=== PATIENT | female | born 1995 | race Caucasian/White ===

== ENCOUNTER 2020-12-02 12:59 | Emergency (ER) | payer BC ==
[2020-12-02 13:43] LABS: Urine Blood Trace-intact (Negative); Urine Glucose Negative (Negative); Urine Protein Negative (Negative)
[2020-12-02 13:56] LABS: Absolute Lymphocytes (CBC) 1.9 K/uL (0.7-4.9); Basophils % 0.3 % (0-1.3); Hematocrit 36.9 % (36.0-45.0); Lymphocytes % 16.8 % (15.3-44.8); MPV 8.3 fL (7.6-11.3)
[2020-12-02 14:40] LABS: BUN Blood Urea Nitrogen 9 mg/dL (7-18); Bicarbonate 27 mmol/L (21-32); Glucose Level 91 mg/dL (74-106); HCG, Quantitative 60326 mIU/mL (1-3); Potassium 4.1 mmol/L (3.5-5.1); Sodium Level 138 mmol/L (136-145)
--- NOTE | 2020-12-02 14:56 | RAD REPORT ---
EXAM DESCRIPTION: US - Transvaginal OB - 12/02/2020 2:44 pm CLINICAL HISTORY: VAGINAL BLEEDING COMPARISON: No comparisons FINDINGS: Uterus is retroflexed. A normal shaped gestational sac is present in the fundal portion of the endometrial cavity. A 15 millimeter x 3 millimeter crescent-shaped subchorionic hemorrhage is pr esent along the posterior wall not regarded as significant at this small size. Gestational sac and yolk sac are identifiable. Measurements yield a 7 week 0 day age. heart rat e is 123 BPM. Both ovaries are identified and show normal blood flow within the stroma. No suspicious adnexal findi ng. No blood or fluid in the cul de sac. Cervical canal appears long and closed. IMPRESSION: Single 7 week 0 day IUP with heart rate of 123 BPM. A small subchorionic hemorrhage is present not regarded as significant.
--- NOTE | 2020-12-02 15:14 | ER ---
Nurse's Notes [facility] Name: Bubba Marcelino Age: 25 yrs Sex: Female : 1995 Arrival Date: 12/02/2020 Time: 13:01 Bed 10 Private MD: Diagnosis: Threatened Presentation: 12/02 13:07 Chief complaint: Patient states: 7 weeks preg, , states she began cramping tc5 yesterday and spotting today. Coronavirus screen: Vaccine status: Patient reports being unvaccinated. Client denies travel out of the [place] in the last 14 days. At this time, the client does not indicate any symptoms associated with coronavirus-19. Ebola Screen: No symptoms or risks identified at this time. Risk Assessment: Do you want to hurt yourself or someone else? Patient reports no desire to harm self or others. Onset of symptoms was December 01, 2020 at 12:00. 13:07 Method Of Arrival: Ambulatory tc5 13:07 Acuity: AMI 3 tc5 14:26 Initial Sepsis Screen: Does the patient meet any 2 criteria? No. Patient's initial oh sepsis screen is negative. Does the patient have a suspected source of infection? No. Patient's initial sepsis screen is negative. Triage Assessment: 14:26 General: Appears comfortable, Behavior is calm, cooperative, appropriate for age. 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 - Social history:: Smoking status: Patient denies any tobacco usage or history of. Patient uses. - Family history:: not pertinent. Screenin:24 Abuse screen: Denies threats or abuse. Nutritional screening: No deficits noted. oh Tuberculosis screening: No symptoms or risk factors identified. Fall Risk None identified. Assessment: 14:24 Obstetrical Assessment: Patient reports abdominal cramping, bleeding, states she is 7 oh weeks . Pain: Complains of pain in abdomen. 15:15 Reassessment: Patient appears in no apparent distress at this time. Patient and/or aj2 family updated on plan of care and expected duration. Pain level reassessed. Patient is alert, oriented x 3, equal unlabored respirations, skin warm/dry/pink. Vital Signs: 13:07 BP 114 / 79; Pulse 96; Resp 16; Temp 97.1; Pulse Ox 100% ; Weight 74.84 kg; Height 5 tc5 ft. 3 in. (160.02 cm); Pain 5/10; 15:15 BP 106 / 70; Pulse 90; Resp 18; Temp 97.1; Pulse Ox 100% on R/A; aj2 13:07 Body Mass Index 29.23 (74.84 kg, 160.02 cm) tc5 ED Course: 13:01 Patient arrived in ED. mr 13:07 Lisa Witt [facility]-C [facility] kb 13:07 Martir Valdez MD is Attending Physician. kb 13:09 Triage completed. tc5 13:31 Kandi Perez, RN is Primary Nurse. oh 14:25 Bed in low position. Call light in reach. oh 14:25 Inserted saline lock: 20 gauge in right antecubital area, using aseptic technique. oh Blood collected. 14:26 Arm band placed on left wrist. oh 14:36 Urine --Ancillary (enter results) Sent. oh 14:44 US Transvaginal Ob In Process Unspecified. EDMS 15:15 No apparent distress. Resting quietly. aj2 15:15 No provider procedures requiring assistance completed. IV discontinued. aj2 Administered Medications: No medications were administered Point of Care Testing: Urine : 14:25 hCG Reading: Positive; oh Outcome: 15:14 Discharge ordered by MD. kb 15:15 Discharged to home ambulatory. aj2 15:15 Condition: stable 15:15 Discharge instructions given to patient, Instructed on discharge instructions, follow up and referral plans. Demonstrated understanding of instructions, follow-up care. 15:26 Patient left the ED. aj2 Signatures: Dispatcher [employer] EDMS Lisa Witt FNP-C FNP-Aaron Naomy Kaplan Angelea aj2 Kandi Perez, RN RN in Parris Jarquin, RN RN tc5
--- NOTE | 2020-12-02 15:15 | EDPHYS ---
Physician Documentation [facility] Name: Bubba Marcelino Age: 25 yrs Sex: Female : 1995 Arrival Date: 12/02/2020 Time: 13:01 Bed 10 Private MD: ED Physician Martir Valdez HPI: 12/02 16:13 This 25 yrs old Female presents to ER via Ambulatory with complaints of kb Vaginal Bleeding, + Preg <12wks. 16:13 The patient presents to the emergency department with vaginal bleeding, described as kb spotting. The estimated gestational age is 7 weeks. course: care: at a clinic, Leakage of Fluid: none appreciated, Ultrasound: the patient has not had an ultrasound, Risk/complications: no obvious risks or complications are appreciated. Previous pregnancies: in previous pregnancies patient has had. Associated signs and symptoms: Pertinent positives: abdominal pain, vaginal bleeding. The patient has not experienced similar symptoms in the past. The patient has not recently seen a physician. Pt reports lower abd cramping for a few days. Today she noticed blood on the toilet paper when she wiped. 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 - Social history:: Smoking status: Patient denies any tobacco usage or history of. Patient uses. - Family history:: not pertinent. ROS: 16:12 Constitutional: Negative for fever, chills, and weight loss. kb 16:12 Abdomen/GI: Positive for abdominal cramps. 16:12 : Positive for vaginal bleeding. 16:12 All other systems are negative. Exam: 16:12 Constitutional: This is a well developed, well nourished patient who is awake, alert, kb and in no acute distress. Head/Face: Normocephalic, atraumatic. ENT: Moist Mucous membranes Respiratory: Respirations even and unlabored. No increased work of breathing, no retractions or nasal flaring. Abdomen/GI: Soft, non-tender. No distention Skin: Warm, dry with normal turgor. Normal color. MS/ Extremity: Pulses equal, no cyanosis. Neurovascular intact. Full, normal range of motion. Neuro: Awake and alert, GCS 15, oriented to person, place, time, and situation. Moves all extremities. Normal gait. Psych: Awake, alert, with orientation to person, place and time. Behavior, mood, and affect are within normal limits. Vital Signs: 13:07 BP 114 / 79; Pulse 96; Resp 16; Temp 97.1; Pulse Ox 100% ; Weight 74.84 kg; Height 5 tc5 ft. 3 in. (160.02 cm); Pain 5/10; 15:15 BP 106 / 70; Pulse 90; Resp 18; Temp 97.1; Pulse Ox 100% on R/A; aj2 13:07 Body Mass Index 29.23 (74.84 kg, 160.02 cm) tc5 MDM: 13:26 Patient medically screened. kb 15:14 Data reviewed: vital signs, nurses notes. Data interpreted: Pulse oximetry: on room air kb is 100 %. Interpretation: normal. Counseling: I had a detailed discussion with the patient and/or guardian regarding: the historical points, exam findings, and any diagnostic results supporting the discharge/admit diagnosis, lab results, radiology results, the need for outpatient follow up, an OB/Gyne specialist, to return to the emergency department if symptoms worsen or persist or if there are any questions or concerns that arise at home. 12/02 13:18 Order name: Abo/rh Typing; Complete Time: 14:37 kb 12/02 13:18 Order name: Basic Metabolic Panel; Complete Time: 14:48 kb 12/02 13:18 Order name: CBC with Diff; Complete Time: 14:09 kb 12/02 13:18 Order name: Quantitative Hcg; Complete Time: 14:48 kb 12/02 13:43 Order name: Urine Dipstick-Ancillary; Complete Time: 13:47 EDMS 12/02 13:46 Order name: Urine --Ancillary (enter results); Complete Time: 14:48 bd 12/02 13:18 Order name: IV Saline Lock; Complete Time: 13:46 kb 12/02 13:18 Order name: Labs collected and sent; Complete Time: 13:46 kb 12/02 13:18 Order name: NPO; Complete Time: 13:47 kb 12/02 13:18 Order name: Urine Dipstick-Ancillary (obtain specimen); Complete Time: 13:45 kb 12/02 13:18 Order name: Urine Test (obtain specimen); Complete Time: 13:45 kb 12/02 13:52 Order name: US Transvaginal Ob; Complete Time: 15:03 kb Administered Medications: No medications were administered Point of Care Testing: Urine : 14:25 hCG Reading: Positive; oh Disposition Summary: 12/02/20 15:14 Discharge Ordered Location: Home kb Condition: Stable kb Diagnosis - Threatened kb Followup: kb - With: Emergency Department - When: As needed - Reason: Worsening of condition Followup: kb - With: Private Physician - When: 2 - 3 days - Reason: Recheck today's complaints, Continuance of care, Re-evaluation by your physician Discharge Instructions: - Discharge Summary Sheet kb - Threatened Miscarriage, [id number] kb - Vaginal Bleeding During , First Trimester, [id number] kb Forms: - Medication Reconciliation Form kb - Thank You Letter kb - Antibiotic Education kb - Prescription Opioid Use kb Addendum: 12/05/2020 08:33 Co-signature as Attending Physician, Martir Valdez MD I agree with the assessment and r n plan of care. Attestation: The patient's history, exam findings, diagnostics, and a summary of any interventions or procedures was reviewed in detail with Lisa TATE. Signatures: Dispatcher [employer] Lisa Marquis FNP-C FNP-Martir Montero MD MD rn Cassaboom, Theresa, RN RN tc5
[2020-12-02 15:30] VITALS: TEMP 97.1; O2SAT 100
[2020-12-02 15:31] VITALS: BP 106/70
== END 2020-12-02 15:26 | disposition home or self-care (01) ==
LOC: ER 12:59
DX: O20.0 Threatened abortion (principal); Z3A.01 Less than 8 weeks gestation of pregnancy
CPT/HCPCS: 36415; 76817; 80048; 81003; 81025; 84702; 85025; 86900; 86901; 99284

== ENCOUNTER 2021-02-05 09:19 | Emergency (ER) | payer BC, SELFPAY ==
--- OUTSIDE RECORDS SUMMARY | 2021-02-05 09:23 | XMS REPORT | Continuity of Care Document ---
:1995 Author Organization [facility] t Address [address] [place] [address] [address] [place] [address] Care Team Providers Name Role Phone RUDY Primary Care Physician Unavailable POLLARD, ISATU Attending Clinician Unavailable SIDDHARTHA UMANA Attending Clinician Unavailable 2, Lab Attending Clinician Unavailable Papo RIOJAS Attending Clinician Nurse, Pob Immunization Attending Clinician Unavailable Siddhartha Umana DO Attending Clinician PAPO Attending Clinician Unavailable Payers Payer Name Policy Type Policy Number Effective Date Expiration Date S ource Problems Condition Condition Condition Status Onset Resolution Last Treating Co mments Source Name Details Category Date Date Treatment Clinician Date High-risk High-risk Disease Active 2020-02 Uni vers 0-25 ity of in first in first 00:00: [place] trimester trimester 00 [facility] History of History of Disease Active 2020-02 U amarilisers depression depression 0-25 it y of 00:00: [address] History of History of Disease Active 2020-02 U nivers anxiety anxiety 0-25 ity of 00:00: [address] Branch Hx of Hx of Disease Active 2020-02 Univers macrosomia macrosomia 0-25 [place] of [place] Medica l , , Br anch currently currently Hx of Hx of Disease Active 2020-02 Univers migraines migraines 0-25 ity of 00:00: [address] Left arm Left arm Disease Active 2021-1 Overview: Un alisson numbness numbness 0-25 Formattin ity of 00:00: g of this 00 note Medical might be Branch different from the original. last episode was 4 weeks ago Nausea and Nausea and Disease Active 2020-02 U nivers vomiting vomiting 0-25 ity of during during 00:00: [place] 00 [facility] Branch Allergies, Adverse Reactions, Alerts Allergy Allergy Status Severity Reaction(s) Onset Inactive Treating Comm ents Source Name Type Date Date Clinician IODINE DRUG Active Other-Cmnt 2014-02 Univer s INGREDI 03-03 ity of 00:00: [place] 00 Medical Branch Iodine Propensi Active Other - See 2014-02 Causes Uni vers ty to comments 03-03 cueva ity of adverse 00:00: [place] reaction 00 [facility] Branch Social History Social Habit Start Date Stop Date Quantity Comments Source ASSERTION 2020-10-29 [facility] 00:00:00 [facility] Exposure to Not sure [facility] SARS-CoV-2 [facility] (event) [place] Alcohol intake 2020-12-22 2020-12-22 Ex-drinker [facility] 00:00:00 00:00:00 (finding) [facility] Sex Assigned At [birth year] Universit y of 00:00:00 00:00:00 [facility] Smoking Status Start Date Stop Date Source Never smoker [facility] Medications Ordered Filled Start Stop Current Ordering Indication Dosage Frequency Signature Comments Components Source Medication Medication Date Date Medication? Clinician (SIG) Name Name magnesium 2020-02 Yes [id number] 400mg Take 1 Univers oxide 400 0-27 tablet by ity o f mg (241.3 00:00: mouth [place] mg 00 daily. Medical magnesium) Branch tablet metoclopram 2020-02 Yes [id number] 10mg Take 1 Univers dorita HCl 10 0-27 tablet by ity of mg tablet 00:00: mouth [place] 00 every 6 Medical (six) Branch hours as needed for Nausea and Vomiting (N/V). magnesium 2020-02 Yes [id number] 400mg Take 1 Univers oxide 400 0-27 tablet by ity o f mg (241.3 00:00: mouth [place] mg 00 daily. Medical magnesium) Branch tablet metoclopram 2020-02 Yes [id number] 10mg Take 1 Univers dorita HCl 10 0-27 tablet by ity of mg tablet 00:00: mouth [place] 00 every 6 Medical (six) Branch hours as needed for Nausea and Vomiting (N/V). magnesium 2020-02 Yes [id number] 400mg Take 1 Univers oxide 400 0-27 tablet by ity o f mg (241.3 00:00: mouth [place] mg 00 daily. Medical magnesium) Branch tablet metoclopram 2020-02 Yes [id number] 10mg Take 1 Univers dorita HCl 10 0-27 tablet by ity of mg tablet 00:00: mouth [place] 00 every 6 Medical (six) Branch hours as needed for Nausea and Vomiting (N/V). doxylamine- 2020-02 Yes Take by Un alisson pyridoxine, 0-25 mouth. ity of vit B6, 10:28: [place] (DICLEGIS) 43 Medical 10-10 mg Branch per tablet [id number] 2020-02 Yes Take by Un alisson 3-dha-epa-f 0-25 mouth. ity of linda oil 10:28: [place] ( 43 Medical GUMMY) 400 Branch mcg-35 mg -25 mg-5 mg Chew doxylamine- 2020-02 Yes Take by Un alisson pyridoxine, 0-25 mouth. ity of vit B6, 10:28: [place] (DICLEGIS) 43 Medical 10-10 mg Branch per tablet [id number] 2020-02 Yes Take by Un alisson 3-dha-epa-f 0-25 mouth. ity of linda oil 10:28: [place] ( 43 Medical GUMMY) 400 Branch mcg-35 mg -25 mg-5 mg Chew doxylamine- 2020-02 Yes Take by Un alisson pyridoxine, 0-25 mouth. ity of vit B6, 10:28: [place] (DICLEGIS) 43 Medical 10-10 mg Branch per tablet [id number] 2020-02 Yes Take by Un alisson 3-dha-epa-f 0-25 mouth. ity of linda oil 10:28: [place] ( 43 Medical GUMMY) 400 Branch mcg-35 mg -25 mg-5 mg Chew Immunizations Ordered Filled Immunization Date Status Comments [facility] e Immunization Name Name SARS-COV-2 COVID-19 2021-01-19 [facility] of Bit9 VACCINE 00:00:00 [place] Medi raven Branch SARS-COV-2 COVID-19 2021-01-19 Completed Unive rsity of PFIZER VACCINE 00:00:00 [facility] Branch Influenza Virus 2020-12-23 Completed Universit y of Vaccine Quad IM, 00:00:00 [place] Me dical Preserv and ABX Branch Free 6 MO-64 YRS Influenza Virus 2020-12-23 Completed Universit y of Vaccine Quad IM, 00:00:00 [place] Me dical Preserv and ABX Branch Free 6 MO-64 YRS Influenza Virus 2020-12-23 Completed Universit y of Vaccine Quad IM, 00:00:00 [place] Me dical Preserv and ABX Branch Free 6 MO-64 YRS Vital Signs Vital Name Observation Time Observation Value Comments Source Systolic blood 2021-01-19 18:02:00 105 mm[Hg] Univer sity of pressure [facility] Diastolic blood 2021-01-19 18:02:00 73 mm[Hg] Unive rsity of pressure [facility] Heart rate 2021-01-19 18:02:00 83 /min [facility] Body temperature 2021-01-19 18:02:00 36.94 Amy [facility] Respiratory rate 2021-01-19 18:02:00 18 /min [facility] Body height 2021-01-19 18:02:00 160 cm [facility] Body weight 2021-01-19 18:02:00 73.029 kg [facility] BMI 2021-01-19 18:02:00 28.52 kg/m2 [facility] Procedures Procedure Date / Time Performed Performing Clinician Sourc e SARS-COV-2 COVID-19 2021-01-19 20:07:37 Doctor Unassigned, No Un iversity of [place] VACCINE,0.3ML,IM Name Medical Branch (PFIZER) POCT URINALYSIS W/O 2021-01-19 00:00:00 Anais Wright [facility] SPECIFIC GRAVITY [facility] Encounters Start End Encounter Admission Attending Care Care Encounter Source Date/Time Date/Time Type Type Clinicians Facility Department ID 2021-02-18 2021-02-18 Outpatient R BENITA POLLARD [facility] [id number] Univers 11:00:00 11:00:00 [id number] [facility] 2021-02-09 2021-02-09 [facility] [id number] Univers 08:50:00 08:50:[address] [facility] 2021-01-19 2021-01-19 Medical Transcription 2, Adc Lab [facility] [id number] Univers 13:12:26 13:27:26 Visit Anais Wright [id number] ity of [id number] PROF[place] [phone] [place]ical NAL [facility] 2021-01-19 2021-01-19 Imm/Inj Nurse, [facility] Pob Immunization [facility] [id number] Univers 13:06:53 13:06:59 Visit Gil Umana [id number] ity [facility] [id number] [id number] [place]ical NAL [facility] 2021-01-19 2021-01-19 Outpatient R PAPO [facility] [id number] Univers 11:30:00 12:17:35 ANAIS [facility] 2021-01-19 2021-01-19 [facility] [id number] Univers 11:20:46 12:17:35 Anais TA [id number] ity of Visit [id number] [id number] [place]ical NAL [facility] Results Test Description Test Time Test Comments Results Result Comments Source POCT URINALYSIS W/O SPECIFIC GRAVITY 2021-01-19 18:04:00 Test Item Value Reference Range Interpretation Comme nts POCT PH U (test code = 3254) n/a 5-8 POCT U LEUK EST (test code = 3263) n/a Negative - Negative POCT U NIT (test code = 3262) n/a Negative - Negative POCT U PROT (test code = 3259) neg Negative - Negative POCT U GLU (test code = 3256) neg Negative - Negative POCT U KETONE (test code = 3258) n/a Negative - Negative POCT U BLD (test code = 3257) n/a Negative - Negative [facility]
[2021-02-05] MEDS ORDERED: NA CHLORIDE 0.9% 1,000 ML ONE (10:17)
[2021-02-05] MEDS ORDERED: METOCLOPRAMIDE 10 MG/2mL INJ ONE (10:17)
[2021-02-05] MEDS ORDERED: DIPHENHYDRAMINE 12.5MG/5ML LIQ ONE (10:17)
[2021-02-05] MEDS ORDERED: DIPHENHYDRAMINE 50 MG/ML VIAL ONE (10:48)
[2021-02-05 10:50] LABS: Absolute Lymphocytes (CBC) 0.7 K/uL (0.7-4.9); Basophils % 0.1 % (0-1.3); Hematocrit 39.4 % (36.0-45.0); Lymphocytes % 6.4 % (15.3-44.8); MPV 8.3 fL (7.6-11.3); RBC Red Blood Cell Count 4.61 M/uL (3.86-4.86)
[2021-02-05 11:14] LABS: ALT/SGPT 15 U/L (12-78); AST/SGOT 10 U/L (15-37); Albumin 3.2 g/dL (3.4-5.0); Alkaline Phosphatase 52 U/L (45-117); BUN Blood Urea Nitrogen 11 mg/dL (7-18); Bicarbonate 23 mmol/L (21-32); Bilirubin Direct < 0.1 mg/dL (0-0.2); Bilirubin Total 0.3 mg/dL (0.2-1.0); Glucose Level 89 mg/dL (74-106); Lipase 69 U/L (73-393); Protein, Total 7.2 g/dL (6.4-8.2); Sodium Level 137 mmol/L (136-145)
[2021-02-05 11:47] LABS: Urine Blood Negative (Negative); Urine Glucose Negative (Negative); Urine Protein Negative (Negative); Urine Specific Gravity >=1.030 (1.005-1.030)
[2021-02-05 11:59] LABS: Blood Morphology Comment NOT SEEN (NOT SEEN); Platelet Estimate ADEQ; White Blood Cell Scan OK (OK)
--- NOTE | 2021-02-05 12:54 | ER ---
Nurse's Notes [facility] Name: Bubba Marcelino Age: 25 yrs Sex: Female : 1995 Arrival Date: 02/05/2021 Time: 09:20 Bed 9 Private MD: Diagnosis: Vomiting;Diarrhea, unspecified Presentation: 02/05 09:44 Chief complaint: Patient states: N/V/D and diffuse abdominal cramps since 1900 last jl7 night, pt reports approx. 4 months . Coronavirus screen: diarrhea, nausea, vomiting. Client presents with at least one sign or symptom that may indicate coronavirus-19. Standard/surgical mask placed on the client. Provider contacted for isolation considerations. Ebola Screen: No symptoms or risks identified at this time. Risk Assessment: Do you want to hurt yourself or someone else? Patient reports no desire to harm self or others. Onset of symptoms was February 04, 2021 at 19:00. Care prior to arrival: None. 09:44 Method Of Arrival: Ambulatory jl7 09:44 Acuity: AMI 3 jl7 12:56 Initial Sepsis Screen: Does the patient meet any 2 criteria? No. Patient's initial ll3 sepsis screen is negative. Does the patient have a suspected source of infection? No. Patient's initial sepsis screen is negative. Triage Assessment: 09:46 General: Appears in no apparent distress. uncomfortable, Behavior is calm, cooperative, jl7 appropriate for age. Pain: Complains of pain in abdomen diffusely Pain currently is 7 out of 10 on a pain scale. Quality of pain is described as crampy. GI: Reports diarrhea, nausea, vomiting. 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 - Social history:: Smoking status: Patient denies any tobacco usage or history of. Screenin:45 Abuse screen: Denies threats or abuse. Nutritional screening: No deficits noted. ll3 Tuberculosis screening: No symptoms or risk factors identified. Fall Risk IV access (20 points). Total Anders Fall Scale indicates No Risk (0-24 pts). Assessment: 10:45 General: General: See triage. ll3 11:42 Reassessment: Patient appears in no apparent distress at this time. No changes from ll3 previously documented assessment. Patient and/or family updated on plan of care and expected duration. Pain level reassessed. 12:45 Reassessment: Patient appears in no apparent distress at this time. No changes from ll3 previously documented assessment. Patient and/or family updated on plan of care and expected duration. Pain level reassessed. Patient is alert, oriented x 3, equal unlabored respirations, skin warm/dry/pink. 12:45 GI: Abdomen is flat, non-distended. ll3 13:08 Reassessment: Patient appears in no apparent distress at this time. No changes from ll3 previously documented assessment. Patient and/or family updated on plan of care and expected duration. Pain level reassessed. Patient is alert, oriented x 3, equal unlabored respirations, skin warm/dry/pink. Vital Signs: 09:44 Weight 73.03 kg; Height 5 ft. 3 in. (160.02 cm); Pain 7/10; jl7 09:54 BP 95 / 73; Pulse 108; Resp 16; Temp 98.1(O); Pulse Ox 100% on R/A; Weight 73.03 kg ll3 (R); Height 5 ft. 3 in. (160.02 cm) (R); Pain 5/10; 11:30 BP 96 / 66; Pulse 96; Resp 16; Pulse Ox 100% on R/A; ll3 13:08 BP 102 / 64; Pulse 99; Resp 15; Pulse Ox 100% on R/A; ll3 09:54 Body Mass Index 28.52 (73.03 kg, 160.02 cm) ll3 ED Course: 09:20 Patient arrived in ED. kc5 09:32 Álvaro Rosenberg PA is PHCP. jmm 09:33 Nirav Sanford MD is Attending Physician. jmm 09:40 Perry Patino, NITA is Primary Nurse. ll3 09:46 Triage completed. jl7 09:46 Arm band placed on right wrist. jl7 10:45 Initial lab(s) drawn, by ED staff, sent to lab. Inserted saline lock: 22 gauge in left kj1 antecubital area, using aseptic technique. Blood collected. 12:56 Patient has correct armband on for positive identification. Call light in reach. Adult ll3 w/ patient. 12:56 No provider procedures requiring assistance completed. ll3 13:08 IV discontinued, intact, bleeding controlled, No redness/swelling at site. Pressure ll3 dressing applied. Administered Medications: 10:52 Drug: NS 0.9% 1000 ml Route: IV; Rate: 1 bolus; Site: left antecubital; vg1 13:09 Follow up: Response: No adverse reaction; IV Status: Completed infusion; IV Intake: ll3 1000ml 10:52 Drug: Reglan (metoCLOPramide) 20 mg Route: IVP; Site: left antecubital; vg1 13:09 Follow up: Response: No adverse reaction; Marked relief of symptoms ll3 10:55 Drug: diphenhydrAMINE 12.5 mg Route: IVP; Site: left antecubital; vg1 11:48 Follow up: Response: No adverse reaction ll3 Intake: 13:09 IV: 1000ml; Total: 1000ml. ll3 Outcome: 12:54 Discharge ordered by . enedina 13:08 Discharged to home ambulatory. ll3 13:08 Condition: stable 13:08 Discharge instructions given to patient, Instructed on discharge instructions, follow up and referral plans. medication usage, Demonstrated understanding of instructions, follow-up care, medications, Prescriptions given X 1. 13:09 Patient left the ED. ll3 Signatures: Álvaro Rosenberg PA PA jmm Leal, Jahala, RN RN jl7 Sarah Witt kj1 Christine Perdomo RN RN vg1 Perry Patino RN RN ll3 Debra Umana kc5 Corrections: (The following items were deleted from the chart) 10:59 10:52 diphenhydrAMINE 12.5 mg IVP in left antecubital vg1 vg1 11:42 11:36 General: ll3 ll3
--- NOTE | 2021-02-05 12:54 | EDPHYS ---
Physician Documentation [facility] Name: Bubba Marcelino Age: 25 yrs Sex: Female : 1995 Arrival Date: 02/05/2021 Time: 09:20 Bed 9 Private MD: ED Physician Nirav Sanford HPI: 02/05 09:48 This 25 yrs old Female presents to ER via Ambulatory with complaints of jmm Nausea/Vomiting/Diarrhea, Abdominal Cramping. 09:48 The patient presents to the emergency department with nausea, vomiting, diarrhea, jmm abdominal pain. Onset: The symptoms/episode began/occurred gradually, 1 day(s) ago. Possible causes: . The symptoms are aggravated by nothing. The symptoms are alleviated by nothing. Associated signs and symptoms: Pertinent positives: abdominal pain. This is a 25 year old female that presents to the ED with complaints of vomiting beginning last night. With diarrhea beginning today and diffuse abdominal pain. Patient denies recent travel, denies recent abx use. . 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 - Social history:: Smoking status: Patient denies any tobacco usage or history of. ROS: 09:48 Constitutional: Negative for fever, chills, and weight loss, Cardiovascular: Negative jmm for chest pain, palpitations, and edema, Respiratory: Negative for shortness of breath, cough, wheezing, and pleuritic chest pain. 09:48 Abdomen/GI: Positive for abdominal pain, nausea and vomiting, diarrhea. 09:48 All other systems are negative. Exam: 09:48 Constitutional: This is a well developed, well nourished patient who is awake, alert, jmm and in no acute distress. Head/Face: atraumatic. Eyes: EOMI, no conjunctival erythema appreciated ENT: Moist Mucus Membranes Neck: Trachea midline, Supple Chest/axilla: Normal chest wall appearance and motion. Cardiovascular: Regular rate and rhythm. No edema appreciated Respiratory: Normal respirations, no respiratory distress appreciated Abdomen/GI: Non distended, soft Back: Normal ROM Skin: General appearance color normal MS/ Extremity: Moves all extremities, no obvious deformities appreciated, no edema noted to the lower extremities Neuro: Awake and alert, normal gait Psych: Behavior is normal, Mood is normal, Patient is cooperative and pleasant Vital Signs: 09:44 Weight 73.03 kg; Height 5 ft. 3 in. (160.02 cm); Pain 7/10; jl7 09:54 BP 95 / 73; Pulse 108; Resp 16; Temp 98.1(O); Pulse Ox 100% on R/A; Weight 73.03 kg ll3 (R); Height 5 ft. 3 in. (160.02 cm) (R); Pain 5/10; 11:30 BP 96 / 66; Pulse 96; Resp 16; Pulse Ox 100% on R/A; ll3 13:08 BP 102 / 64; Pulse 99; Resp 15; Pulse Ox 100% on R/A; ll3 09:54 Body Mass Index 28.52 (73.03 kg, 160.02 cm) ll3 MDM: 09:48 Patient medically screened. [facility] 12:52 Data reviewed: vital signs, nurses notes. Counseling: I had a detailed discussion with enedina the patient and/or guardian regarding: the historical points, exam findings, and any diagnostic results supporting the discharge/admit diagnosis, lab results, radiology results, the need for outpatient follow up, to return to the emergency department if symptoms worsen or persist or if there are any questions or concerns that arise at home. ED course: Patient is alert and non toxic in appearance in the ED. States she feels much better. I do not currently suspect acute appendicitis or a surgical abdomen. Advised to follow up with her MECHANICAL ENERGY ENGINEER and otherwise given strict return precautions. Patient understood and agrees with the plan of care. . 02/05 09:49 Order name: Basic Metabolic Panel; Complete Time: 11:20 [facility] 02/05 09:49 Order name: CBC with Diff; Complete Time: 12:01 [facility] 02/05 09:49 Order name: Hepatic Function; Complete Time: 11:20 [facility] 02/05 09:49 Order name: Lipase; Complete Time: 11:20 [facility] 02/05 11:47 Order name: Urine Dipstick-Ancillary; Complete Time: 11:55 [facility] 02/05 11:59 Order name: CBC Smear Scan; Complete Time: 12:01 [facility] 02/05 09:49 Order name: IV Saline Lock; Complete Time: 10:46 [facility] 02/05 09:49 Order name: Labs collected and sent; Complete Time: 10:46 [facility] 02/05 09:49 Order name: Urine Dipstick-Ancillary (obtain specimen); Complete Time: 11:48 [facility] Administered Medications: 10:52 Drug: NS 0.9% 1000 ml Route: IV; Rate: 1 bolus; Site: left antecubital; vg1 13:09 Follow up: Response: No adverse reaction; IV Status: Completed infusion; IV Intake: ll3 1000ml 10:52 Drug: Reglan (metoCLOPramide) 20 mg Route: IVP; Site: left antecubital; vg1 13:09 Follow up: Response: No adverse reaction; Marked relief of symptoms ll3 10:55 Drug: diphenhydrAMINE 12.5 mg Route: IVP; Site: left antecubital; vg1 11:48 Follow up: Response: No adverse reaction ll3 Disposition: 02/06 07:48 Co-signature as Attending Physician, Nirav Sanford MD I agree with the assessment and sp3 plan of care. Disposition Summary: 02/05/21 12:54 Discharge Ordered Location: Home [facility] Condition: Stable [facility] Diagnosis - Vomiting [facility] - Diarrhea, unspecified [facility] Followup: [facility] - With: Private Physician - When: 1 - 2 days - Reason: Recheck today's complaints, Continuance of care, Re-evaluation by your physician Discharge Instructions: - Discharge Summary Sheet [facility] - Hyperemesis Gravidarum [facility] Forms: - Medication Reconciliation Form [facility] - Thank You Letter [facility] - Antibiotic Education [facility] - Prescription Opioid Use [facility] Prescriptions: - ondansetron 4 mg Oral tablet,disintegrating - take 1 tablet by ORAL route every 4-6 hours As needed; 20 tablet; Refills: 0, [facility] Product Selection Permitted Signatures: Dispatcher [employer] [facility] Álvaro Rosenberg PA PA jm Joyce Mcfadden RN RN jl7 Christine Perdomo RN RN vg1 Nirav Sanford MD MD sp3 Perry Patino RN ll3
[2021-02-05 13:18] VITALS: TEMP 98.1; O2SAT 100
[2021-02-05 13:21] VITALS: BP 102/64
== END 2021-02-05 13:09 | disposition home or self-care (01) ==
LOC: ER 09:19
DX: O21.0 Mild hyperemesis gravidarum (principal); Z3A.00 Weeks of gestation of pregnancy not specified; K21.9 Gastro-esophageal reflux disease without esophagitis
CPT/HCPCS: 36415; 80048; 80076; 81003; 83690; 85025; 96361; 96374; 96375; 99284; J1200; J2765; J7030; Q0163

== ENCOUNTER 2023-01-24 11:52 | Emergency (ER) | payer OTHER ==
--- OUTSIDE RECORDS SUMMARY | 2023-01-24 11:57 | XMS REPORT | Continuity of Care Document ---
:1995 Author Organization [facility] t Address [address] [place] [address] [place] [id number] Care Team Providers Name Role Phone Camilo Bergeron MD Primary Care Physician [email or web address] Attending Clinician Unavailable Doctor Unassigned, Bunk Foss Attending Clinician Unavailable BENITA POLLARD Attending Clinician Unavailable Benita Pollard MD Attending Clinician Fontanilla III, BRICK EXTRUDER OPERATOR, R Attending Clinician Shanon Melton MD Attending Clinician Only, Adc Test Attending Clinician Unavailable ANAIS BARROS Attending Clinician Unavailable Anais Barros PA-C Attending Clinician Italo Pollard MD Attending Clinician HORTENSIA HERRMANN Attending Clinician Unavailable AYDIN DIAZ Attending Clinician Unavailable Aydin Lyon Attending Clinician CELENA BURNS Attending Clinician Unavailable Celena Burns MD Attending Clinician 2, Adc Lab Attending Clinician Unavailable MARI LIU Attending Clinician Unavailable MARI LIU Attending Clinician Unavailable Ultrasound, Adc Mfm Attending Clinician Unavailable Mari Liu MD Attending Clinician Ingrid Attending Clinician Unavailable GIL LIU Attending Clinician Unavailable Nurse, Adc Pob Immunization Attending Clinician Unavailable Gil Liu DO Attending Clinician Shraddha Attending Clinician Unavailable Nurse, Adc Women's Health Attending Clinician Unavailable Ruth Calderon MD Attending Clinician BENITA POLLARD Admitting Clinician Unavailable [email or web address]_S Admitting Clinician Unavailable Benita Pollard MD Admitting Clinician AYDIN DIAZ Admitting Clinician Unavailable CELENA BURNS Admitting Clinician Unavailable Celena Burns MD Admitting Clinician River_Ayesha Admitting Clinician Unavailable Shraddha Admitting Clinician Unavailable Payers Payer Name Policy Type Policy Number Effective Date Expiration Date Susana whalen FORMERLY [facility] [id number] 2019 2021 00:00:00 00:00:00 [facility] [id number] [place]/ PRE-EMPLOYMENT Problems Condition Condition Condition Status Onset Resolution Last Treating Co mments Source Name Details Category Date Date Treatment Clinician Date 39 weeks 39 weeks Disease Active Unive rs gestation gestation 5-20 ity of of of 00:00: [place] [facility] Encounter Encounter Disease Active Uni vers for for 5-20 ity of planned planned 00:00: [place] induction induction 00 [facility] of labor of labor Alpha Liveborn Liveborn Disease Active Unive rs , of infant, of 5-20 it y of qu[place] qu[place] , , 00 [place] dical born in born in [facility] by vaginal by vaginal delivery delivery 36 weeks 36 weeks Disease Active Unive rs gestation gestation 4-27 ity of of of 00:00: [place] [facility] BV BV Disease Active Univers (bacterial (bacterial 4-27 it y of vaginosis) [place]in[place] [address] [place] [address] 37 weeks 37 weeks Disease Active Unive rs gestation gestation 4-27 ity of of of 00:00: [place] 00 [facility] Obesity Obesity Disease Active 2020-02 Univers (BMI (BMI 2-28 ity of 30-39.9) 30-39.9) 00:00: [place] 00 Medical Branch Nausea Nausea Disease Active 2020-02 Univers vomiting vomiting 0-25 ity of and and 00:00: [place] diarrhea diarrhea 00 Medica l Branch High-risk High-risk Disease Active 2020-02 Uni vers 0-25 ity of in third in third 00:00: [place] trimester trimester 00 [facility] History of History of Disease Active 2020-02 U nivers depression depression 0-25 it y of 00:00: [place] 00 Medical Branch History of History of Disease Active 2020-02 U nivers anxiety anxiety 0-25 ity of 00:00: [place] 00 Medical Branch Hx of Hx of Disease Active 2020-02 Univers macrosomia macrosomia 0-25 it y of in infant in 00:[place] in prior in prior 00 Medica l , , Br anch currently currently Hx of Hx of Disease Active 2020-02 Univers migraines migraines 0-25 ity of 00:00: [place] 00 Medical Branch Left arm Left arm Disease Active 2020-02 Overview: Un alisson numbness numbness 0-25 Formattin ity of 00:00: g of this [place] 00 note Medical might be Branch different from the original. last episode was 4 weeks ago Nausea and Nausea and Disease Active 2020-02 U nivers vomiting vomiting 0-25 ity of during during 00:00: [place] 00 [facility] Allergies, Adverse Reactions, Alerts Allergy Allergy Status Severity Reaction(s) Onset Inactive Treating Comm ents Source Name Type Date Date Clinician Iodine Propensi Active Other - See 2014-02 Causes Uni vers ty to comments 03-03 cueva ity of adverse 00:00: [place] reaction 00 Medical s Branch IODINE DRUG Active Other-Cmnt 2014-02 Univer s INGREDI -04 ity of 00:00: [place] 00 Medical Branch Iodine Allergy Active [facility] Social History Social Habit Start Date Stop Date Quantity Comments Source ASSERTION 2020-10-29 University of 00:00:00 [facility] Sexual orientation Gifty tong [facility] Exposure to 2021-08-28 2021-09-07 Not sure University of SARS-CoV-2 (event) 00:00:00 14:53:00 [facility] Tobacco use and 2021-09-07 2021-09-07 Smokeless Universit y of exposure 00:00:00 00:00:00 tobacco non-user [facility] Alcohol intake 2021-04-17 2021-04-17 Ex-drinker [facility] 00:00:00 00:00:00 (finding) [facility] History of Social 2020-12-22 2020-12-22 Univers ity of function 00:00:00 00:00:00 [facility] Sex Ass[birth year] At [birth year] Universit y of 00:00:00 00:00:00 [facility] Smoking Status Start Date Stop Date Source Never smoked tobacco [facility] Medications Ordered Filled Start Stop Current Ordering Indication Dosage Frequency Signature Comments Components Source Medication Medication Date Date Medication? Clinician (SIG) Name Name [id number] 2021- No Take by Un alisson 3-dha-epa-f 7-11 -11 mouth. ity o f linda oil 15:57: 00:00 [place] ( 50 :00 Medical GUMMY) 400 Branch mcg-35 mg -25 mg-5 mg Chew [id number] Yes Take by Uni vers 3-dha-epa-f 5-21 mouth. ity of linda oil 19:11: [place] ( 17 Medical GUMMY) 400 Branch mcg-35 mg -25 mg-5 mg Chew doxylamine- 2021- No Take by Un alisson pyridoxine, 5-21 05-21 mouth. ity o f vit B6, 12:59: 00:00 [place] (DICLEGIS) 32 :00 Medical 10-10 mg Branch per tablet ibuprofen 2021- Yes [id number] 600mg Take 1 Univers 600 mg 5-21 102 tablet by ity of tablet 00:00: mouth [place] 00 every 6 Medical (six) Branch hours as needed (Pain). Take with food or milk. ibuprofen 2021-0 Yes [id number] 600mg Take 1 Univers 600 mg 5-21 102 tablet by ity of tablet 00:00: mouth [place] 00 every 6 Medical (six) Branch hours as needed (Pain). Take with food or milk. ibuprofen 2021-0 Yes [id number] 600mg Take 1 Univers 600 mg 5-21 102 tablet by ity of tablet 00:00: mouth [place] 00 every 6 Medical (six) Branch hours as needed (Pain). Take with food or milk. witch Kathrin Yes Topical, Un alisson (TUCKS) 50 5-20 Q4HPRN, ity of % topical 23:30: [place] pad 50 on Tue Medical 07/17/21 at Branch 1830, Until Discontinu ed, Routine, rectal/hem orrhoidal pain rho(D) Yes 300ug 300 mcg, Univer s immune 5-20 Intramuscu ity of globulin 23:30: lar, ONCE, [place] as (RHOGAM) 01 For 1 Medical syringe 300 dose, Branch mcg Conditiona l, Routine ondansetron Yes 4mg 4 mg, Slow Univers (ZOFRAN 5-20 IV Push, ity of (PF)) 23:29: Q8HPRN, [place] injection 4 50 Starting Medi raven mg on Tue Branch 07/17/21 at 1829, Until Discontinu ed, Routine, Nausea and Vomiting (N/V) simethicone Yes 160mg 160 mg, Un alisson (GAS RELIEF 5-20 Oral, ity of (SIMETHICON 23:29: PC+HSPRN, [place] E)) 50 Starting Medical chewable on Tue Branch tablet 160 07/17/21 at mg 1829, Until Discontinu ed, Routine, Gas docusate Yes 200mg 200 mg, Unive rs (COLACE) 5-20 Oral, ity of capsule 200 23:29: QDAILYPRN, [place] mg 50 Starting Medical on Fri Branch 07/17/21 at 1829, Until Discontinu ed, Routine, Constipati on magnesium Yes 30mL 30 mL, Univer s hydroxide 5-20 Oral, ity of (MILK OF 23:29: QDAILYPRN, [place] as MAGNESIA) 50 Starting Medica l 400 mg/5 mL on Tue Branch suspension 07/17/21 at 30 mL 1829, Until Discontinu ed, Routine, Constipati on benzocaine- 0 Yes Topical, Un alisson menthol 5-20 PRN, ity of (DERMOPLAST 23:29: [place] 20-0.5 % 50 on Fri Medical topical 07/17/21 at Branch spray 182, Until Discontinu ed, Routine, Perineum discomfort HYDROcodone 0 Yes 1{tbl} 1 tablet, Univers -acetaminop 5-20 Oral, ity of hen (NORCO 23:29: Q6HPRN, [place] 5) 5-325 mg 50 Starting Medi raven tablet 1 on Tue Branch tablet 07/17/21 at 1829, Until Discontinu ed, Routine, Pain (scale 7-10) ibuprofen 2021-0 Yes 600mg 600 mg, [facility] ers (IBU) 5-20 Oral, ity of tablet 600 23:29: Q6HPRN, [place] mg 50 Starting Medical on Tue Branch 07/17/21 at 1829, Until Discontinu ed, Routine, Pain (scale 4-6) diphenhydrA 0 Yes 25mg 25 mg, [facility] ers MINE 5-20 Oral, ity of (BENADRYL) 23:29: Q6HPRN, [place] tablet 25 50 Starting Medica l mg on Tue Branch 07/17/21 at 1829, Until Discontinu ed, Routine, Sleep, Itching acetaminoph Yes 650mg 650 mg, Un alisson en 5-20 Oral, ity of (TYLENOL) 23:29: Q6HPRN, [place] tablet 650 49 Starting Medic al mg on Tue Branch 07/17/21 at 1829, Until Discontinu ed, Routine, Pain (scale 1-3) lactated 2021- No 1000mL at 125 [facility] ers ringers IV -20 05-20 mL/hr, ity of infusion 19:00: 19:18 1,000 mL, [place] as 1,000 mL 00 :00 IV Medical Infusion, Alpha ONCE, 1 dose, On Tue07/17/21 at 1400, ALEXA oxytocin 2021-0 2021- No 300mL/h 300 mL/hr, Univers (PITOCIN) -20 05-20 IV ity of 30 units in 18:55: 23:30 Infusion, [place] NS 500 mL 23 :25 SEE-INSTRU Medi raven IV infusion CTIONS, Branc h Starting on Tue07/17/[address] at 300 mL/hr for 1 hr then 150 mL/hr for 1 hr. & nbsp; For post delivery uterotonic
PIB 2021- No Epidural, Univers fentaNYL-ro 5-20 05-20 CONTINUOUS i ty of pivacaine 2 17:45: 20:03 PRN, [place] mcg/mL-0.1 00 :11 Starting Medic al % (PF) in on Fri Branch NS 200 mL 07/17/21 at epidural 1245, infusion Until Fri RTU 07/17/21 at 1503, Routine, Intra-op PIB 2021- No Epidural, Univers fentaNYL-ro 07-17 05-20 ONCE INTRA i ty of pivacaine 2 17:45: 20:03 PROCEDURE, [place] mcg/mL-0.1 00 :11 Starting Medic al % (PF) in on Fri Branch NS 200 mL 07/17/21 at epidural 1245, infusion Until Tue RTU 07/17/21 at 1503, Routine, Intra-op lidocaine-e 2021- No Epidural, Univers pinephrine 07-17 05-20 ONCE INTRA it y of (XYLOCAINE 17:44: 20:03 PROCEDURE, [place] W/EPINEPHRI 00 :11 Starting Medi raevn NE) 2 on Fri Branch %-1:200,000 07/17/21 at injection 1244, Until 07/17/21 at 1503, Routine, Intra-op lidocaine 2021- No Slow IV Univ ers 1% 07-17-20 Push, ONCE ity of (XYLOCAINE) 17:35: 20:03 INTRA [place] 100 mg/10 00 :11 PROCEDURE, Medi raven mL (1 %) Starting Branch injection on Tue07/17/21 at 1235, Until 07/17/21 at 1503, Routine, Intra-op doxylamine- Yes Take by Uni vers pyridoxine, 5-20 mouth. ity of vit B6, 13:57: [place] (DICLEGIS) 46 Medical 10-10 mg Branch per tablet [id number] Yes Take by Uni vers 3-dha-epa-f 5-20 mouth. ity of linda oil 13:57: [place] ( 46 Medical GUMMY) 400 Branch mcg-35 mg -25 mg-5 mg Chew acetaminoph 2021- No 650mg 650 mg, U nivers en 07-17 05-20 Oral, ity of (TYLENOL) 11:09: 23:30 Q6HPRN, [place] tablet 650 57 :51 Starting Medic al mg on Tue Branch 07/17/21 at 0609, Until Tue07/17/21 at 1829, Routine, Pain (scale 1-3) D5W-LR IV 2021- No 1000mL at 125 Uni vers infusion 07-17 05-20 mL/hr, IV ity o f 1,000 mL 09:00: 23:31 Infusion, [place] as 00 :31 CONTINUOUS Medical , Starting Branch on Tue07/17/21 at 0400, Until Tue07/17/21 at 1830, Routine terbutaline 2021- No .25mg 0.25 mg, Univers (BRETHINE) 07-17-20 Subcutaneo it y of injection 08:58: 23:30 [place], PRN - [place] 0.25 mg 35 :51 SEE Medical INSTRUCTIO Branch NS, Starting on Tue07/17/21 at 0358, Until Tue07/17/21 at 1829, Routine, bradycardi a > 3 min or Cat III strip FENTanyl PF 2021- No 100ug 100 mcg, Univers (SUBLIMAZE 07-17- Slow IV ity o f (PF)) 08:58: 23:30 Push, [place] injection 35 :51 Q1HPRN, Medical 100 mcg Starting Branch on Tue07/17/21 at 0358, Until Tue07/17/21 at 1829, Routine, contractio n without an epidural and SVE < 8 cm and Cat I strip oxytocin 2021- No 1mU/min at 1-40 Un alisson (PITOCIN) 5-20 05-20 mL/hr, IV ity of 30 units in 08:58: 23:31 Infusion, [place] NS 500 mL 35 :31 TITRATE, Medica l IV infusion Starting Bran ch on Tue07/17/21 at 0358, Until Tue07/17/21 at 1830, ALEXA doxylamine- Yes Take by Uni vers pyridoxine, 5-12 mouth. ity of vit B6, 17:45: [place] (DICLEGIS) 32 Medical 10-10 mg Branch per tablet [id number] 2021-0 Yes Take by Uni vers 3-dha-epa-f 5-12 mouth. ity of linda oil 17:45: [place] ( 32 Medical GUMMY) 400 Branch mcg-35 mg -25 mg-5 mg Chew doxylamine- 2021-0 Yes Take by Uni vers pyridoxine, 5-12 mouth. ity of vit B6, 17:45: [place] (DICLEGIS) 32 Medical 10-10 mg Branch per tablet [id number] 2021-0 Yes Take by Uni vers 3-dha-epa-f 5-12 mouth. ity of linda oil 17:45: [place] ( 32 Medical GUMMY) 400 Branch mcg-35 mg -25 mg-5 mg Chew doxylamine- 2021-0 Yes Take by Uni vers pyridoxine, 5-12 mouth. ity of vit B6, 17:45: [place] ([facility]) 32 Medical 10-10 mg Branch per tablet [id number] 2021-0 Yes Take by Uni vers 3-dha-epa-f 5-12 mouth. ity of linda oil 17:45: [place] ( 32 Medical GUMMY) 400 Branch mcg-35 mg -25 mg-5 mg Chew metroNIDAZO 2021-0 Yes 500mg 500 mg, Un alisson LE (FLAGYL) 4-27 Oral, Q12H it y of tablet 500 15:00: ABX, [place] mg 00 dose on Tue06/24/21 at 1000, Until Discontinu ed, Routine
Reason for Anti-Infec tive: Documented Infection< br>Documen mary Infection Site: Other
O ther site: vaginal
Duration of Therapy: 7 days doxylamine- 2021-0 Yes Take by Uni vers pyridoxine, 4-27 mouth. ity of vit B6, 14:56: [place] (DICLEGIS) 23 Medical 10-10 mg Branch per tablet [id number] 2021-0 Yes Take by Uni vers 3-dha-epa-f 4-27 mouth. ity of linda oil 14:56: [place] ( 23 Medical GUMMY) 400 Branch mcg-35 mg -25 mg-5 mg Chew doxylamine- 2021-0 Yes Take by Uni vers pyridoxine, 06-24 mouth. ity of vit B6, 14:56: [place] (DICLEGIS) 23 Medical 10-10 mg Branch per tablet [id number] 0 Yes Take by Uni vers 3-dha-epa-f 06-24 mouth. ity of linda oil 14:56: [place] ( 23 Medical GUMMY) 400 Branch mcg-35 mg -25 mg-5 mg Chew doxylamine- 0 Yes Take by Uni vers pyridoxine, 06-24 mouth. ity of vit B6, 14:56: [place] (DICLEGIS) 23 Medical 10-10 mg Branch per tablet [id number] 0 Yes Take by Uni vers 3-dha-epa-f 06-24 mouth. ity of linda oil 14:56: [place] ( 23 Medical GUMMY) 400 Branch mcg-35 mg -25 mg-5 mg Chew doxylamine- 0 Yes Take by Uni vers pyridoxine, 06-24 mouth. ity of vit B6, 14:56: [place] (DICLEGIS) 23 Medical 10-10 mg Branch per tablet [id number] 0 Yes Take by Uni vers 3-dha-epa-f 06-24 mouth. ity of linda oil 14:56: [place] ( 23 Medical GUMMY) 400 Branch mcg-35 mg -25 mg-5 mg Chew doxylamine- 0 Yes Take by Uni vers pyridoxine, 06-24 mouth. ity of vit B6, 09:57: [place] (DICLEGIS) 25 Medical 10-10 mg Branch per tablet [id number] Yes Take by Uni vers 3-dha-epa-f 06-24 mouth. ity of linda oil 09:57: [place] ( 25 Medical GUMMY) 400 Branch mcg-35 mg -25 mg-5 mg Chew metroNIDAZO 2021-2021- No 500mg 500 mg, U meenu TINOCO (FLAGYL) 06-24 Oral, ity of tablet 500 03:45: 02:39 ONCE, 1 [place] mg 00 :00 dose, On Medical Tue Branch 06/23/21 at 2245, Routine
Reason for Anti-Infec tive: Documented Infection< br>Documen mary Infection Site: Pelvic lactated 0 2021- No 1000mL at 999 [facility] ers ringers IV 06-24 04-27 mL/hr, ity of infusion 03:00: 02:36 1,000 mL, [place] 1,000 mL 00 :00 IV Medical Infusion, Branch ONCE, 1 dose, On Tue06/23/21 at 2200, STAT acetaminoph 0 Yes 650mg 650 mg, Un alisson en 06-24 Oral, ity of (TYLENOL) 02:30: Q6HPRN, [place] tablet 650 36 Starting Medic al mg on Tue Branch 06/23/21 at 2130, Until Discontinu ed, Routine, Pain (scale 1-3), Temp > 38.5 C D5W-LR IV Yes 1000mL at 150 [facility] ers infusion 06-24 mL/hr, IV ity of 1,000 mL 01:30: Infusion, [place] 00 CONTINUOUS Medical , Starting Branch on Tue06/23/21 at 2030, Until Discontinu ed, Routine lactated 2021- No 1000mL at 999 [facility] ers ringers IV 06-24 04-27 mL/hr, ity of infusion 01:30: 00:43 1,000 mL, [place] 1,000 mL 00 :00 IV Medical Infusion, Branch ONCE, 1 dose, On Tue06/23/21 at 2030, STAT ondansetron Yes 4mg 4 mg, Slow Univers (ZOFRAN 06-24 IV Push, ity of (PF)) 00:21: Q6HPRN, [place] injection 4 46 Nausea and Me dical mg Vomiting Branch (N/V), Starting on Tue06/23/21 at 1921
Do ses of ondansetro n 16 mg and above need to be administer ed via IV piggyback. For Dose >=24mg ECG monitoring is advisable.
metoclopram 0 Yes 10mg 10 mg, Univ ers dorita HCl 06-24 Slow IV ity of (REGLAN) 00:20: Push, [place] injection 31 Q6HPRN, Medical 10 mg Starting Branch on Tue06/23/21 at 1920, Until Discontinu ed, Routine, Nausea and Vomiting (N/V) metroNIDAZO 0 2021- No [id number] 500mg Take 2 Univers LE 250 mg 4-27 05-04 tablets by ity of tablet 00:00: 04:59 mouth [place] 00 :00 every 12 Medical (twelve) Branch hours for 6 days. doxylamine- 2021-0 Yes Take by Uni vers pyridoxine, 4- mouth. ity of vit B6, 21:22: [place] (DICLEGIS) 39 Medical 10-10 mg Branch per tablet [id number] 2021-0 Yes Take by Uni vers 3-dha-epa-f - mouth. ity of linda oil 21:22: [place] ( 39 Medical GUMMY) 400 Branch mcg-35 mg -25 mg-5 mg Chew doxylamine- 2021-0 Yes Take by Uni vers pyridoxine, 4- mouth. ity of vit B6, 21:22: [place] (DICLEGIS) 39 Medical 10-10 mg Branch per tablet [id number] 2021-0 Yes Take by Uni vers 3-dha-epa-f 05-29 mouth. ity of linda oil 21:22: [place] ( 39 Medical GUMMY) 400 Branch mcg-35 mg -25 mg-5 mg Chew doxylamine- 2021-0 Yes Take by Uni vers pyridoxine, 4- mouth. ity of vit B6, 21:22: [place] (DICLEGIS) 39 Medical 10-10 mg Branch per tablet [id number] 2021-0 Yes Take by Uni vers 3-dha-epa-f - mouth. ity of linda oil 21:22: [place] ( 39 Medical GUMMY) 400 Branch mcg-35 mg -25 mg-5 mg Chew doxylamine- 2021-0 Yes Take by Uni vers pyridoxine, 4- mouth. ity of vit B6, 21:22: [place] (DICLEGIS) 39 Medical 10-10 mg Branch per tablet [id number] 2021-0 Yes Take by Uni vers 3-dha-epa-f - mouth. ity of linda oil 21:22: [place] ( 39 Medical GUMMY) 400 Branch mcg-35 mg -25 mg-5 mg Chew doxylamine- 2021-0 Yes Take by Uni vers pyridoxine, 4- mouth. ity of vit B6, 21:22: [place] (DICLEGIS) 39 Medical 10-10 mg Branch per tablet [id number] 2021-0 Yes Take by Uni vers 3-dha-epa-f 05-29 mouth. ity of linda oil 21:22: [place] ( 39 Medical GUMMY) 400 Branch mcg-35 mg -25 mg-5 mg Chew doxylamine- 0 Yes Take by Uni vers pyridoxine, 4- mouth. ity of vit B6, 21:22: [place] (DICLEGIS) 39 Medical 10-10 mg Branch per tablet [id number] 2021-0 Yes Take by Uni vers 3-dha-epa-f 05-29 mouth. ity of linda oil 21:22: [place] ( 39 Medical GUMMY) 400 Branch mcg-35 mg -25 mg-5 mg Chew magnesium 2020-02 Yes [id number] 400mg Take 1 Univers oxide 400 0-27 tablet by ity o f mg (241.3 00:00: mouth [place] mg 00 daily. Medical magnesium) Branch tablet metoclopram 2020-02 Yes [id number] 10mg Take 1 Univers dorita HCl 10 0-27 tablet by ity of mg tablet 00:00: mouth [place] 00 every 6 Medical (six) Branch hours as needed for Nausea and Vomiting (N/V). magnesium 2020-02 Yes [id number] 400mg Take 1 Univers oxide 400 0-27 tablet by ity o f mg (241.3 00:00: mouth [place] mg 00 daily. Medical magnesium) Branch tablet metoclopram 2020-02 Yes [id number] 10mg Take 1 Univers dorita HCl 10 0-27 tablet by ity of mg tablet 00:00: mouth [place] 00 every 6 Medical (six) Branch hours as needed for Nausea and Vomiting (N/V). magnesium 2020-02 Yes [id number] 400mg Take 1 Univers oxide 400 0-27 tablet by ity o f mg (241.3 00:00: mouth [place] mg 00 daily. Medical magnesium) Branch tablet metoclopram 2020-02 Yes [id number] 10mg Take 1 Univers dorita HCl 10 0-27 tablet by ity of mg tablet 00:00: mouth [place] 00 every 6 Medical (six) Branch hours as needed for Nausea and Vomiting (N/V). magnesium 2020-02 Yes [id number] 400mg Take 1 Univers oxide 400 0-27 tablet by ity o f mg (241.3 00:00: mouth [place] mg 00 daily. Medical magnesium) Branch tablet metoclopram 2020-02 Yes [id number] 10mg Take 1 Univers dorita HCl 10 0-27 tablet by ity of mg tablet 00:00: mouth [place] 00 every 6 Medical (six) Branch hours as needed for Nausea and Vomiting (N/V). magnesium 2020-02 Yes [id number] 400mg Take 1 Univers oxide 400 0-27 tablet by ity o f mg (241.3 00:00: mouth [place] mg 00 daily. Medical magnesium) Branch tablet metoclopram 2020-02 Yes [id number] 10mg Take 1 Univers dorita HCl 10 0-27 tablet by ity of mg tablet 00:00: mouth [place] 00 every 6 Medical (six) Branch hours as needed for Nausea and Vomiting (N/V). magnesium 2020-02 Yes [id number] 400mg Take 1 Univers oxide 400 0-27 tablet by ity o f mg (241.3 00:00: mouth [place] mg 00 daily. Medical magnesium) Branch tablet metoclopram 2020-02 Yes [id number] 10mg Take 1 Univers dorita HCl 10 0-27 tablet by ity of mg tablet 00:00: mouth [place] 00 every 6 Medical (six) Branch hours as needed for Nausea and Vomiting (N/V). magnesium 2020-02 Yes [id number] 400mg Take 1 Univers oxide 400 0-27 tablet by ity o f mg (241.3 00:00: mouth [place] mg 00 daily. Medical magnesium) Branch tablet metoclopram 2020-02 Yes [id number] 10mg Take 1 Univers dorita HCl 10 0-27 tablet by ity of mg tablet 00:00: mouth [place] 00 every 6 Medical (six) Branch hours as needed for Nausea and Vomiting (N/V). magnesium 2020-02 Yes [id number] 400mg Take 1 Univers oxide 400 0-27 tablet by ity o f mg (241.3 00:00: mouth [place] mg 00 daily. Medical magnesium) Branch tablet metoclopram 2020-02 Yes [id number] 10mg Take 1 Univers dorita HCl 10 0-27 tablet by ity of mg tablet 00:00: mouth [place] 00 every 6 Medical (six) Branch hours as needed for Nausea and Vomiting (N/V). magnesium 2020-02 Yes [id number] 400mg Take 1 Univers oxide 400 0-27 tablet by ity o f mg (241.3 00:00: mouth [place] mg 00 daily. Medical magnesium) Branch tablet metoclopram 2020-02 Yes [id number] 10mg Take 1 Univers dorita HCl 10 0-27 tablet by ity of mg tablet 00:00: mouth [place] 00 every 6 Medical (six) Branch hours as needed for Nausea and Vomiting (N/V). magnesium 2020-02 Yes [id number] 400mg Take 1 Univers oxide 400 0-27 tablet by ity o f mg (241.3 00:00: mouth [place] mg 00 daily. Medical magnesium) Branch tablet metoclopram 2020-02 Yes [id number] 10mg Take 1 Univers dorita HCl 10 0-27 tablet by ity of mg tablet 00:00: mouth [place] 00 every 6 Medical (six) Branch hours as needed for Nausea and Vomiting (N/V). magnesium 2020-02 Yes [id number] 400mg Take 1 Univers oxide 400 0-27 tablet by ity o f mg (241.3 00:00: mouth [place] mg 00 daily. Medical magnesium) Branch tablet metoclopram 2020-02 Yes [id number] 10mg Take 1 Univers dorita HCl 10 0-27 tablet by ity of mg tablet 00:00: mouth [place] 00 every 6 Medical (six) Branch hours as needed for Nausea and Vomiting (N/V). magnesium 2020-02 Yes [id number] 400mg Take 1 Univers oxide 400 0-27 tablet by ity o f mg (241.3 00:00: mouth [place] mg 00 daily. Medical magnesium) Branch tablet metoclopram 2020-02 Yes [id number] 10mg Take 1 Univers dorita HCl 10 0-27 tablet by ity of mg tablet 00:00: mouth [place] 00 every 6 Medical (six) Branch hours as needed for Nausea and Vomiting (N/V). magnesium 2020-02 Yes [id number] 400mg Take 1 Univers oxide 400 0-27 tablet by ity o f mg (241.3 00:00: mouth [place] mg 00 daily. Medical magnesium) Branch tablet metoclopram 2020-02 Yes [id number] 10mg Take 1 Univers dorita HCl 10 0-27 tablet by ity of mg tablet 00:00: mouth [place] 00 every 6 Medical (six) Branch hours as needed for Nausea and Vomiting (N/V). magnesium 2020-02 Yes [id number] 400mg Take 1 Univers oxide 400 0-27 tablet by ity o f mg (241.3 00:00: mouth [place] mg 00 daily. Medical magnesium) Branch tablet metoclopram 2020-02 Yes [id number] 10mg Take 1 Univers dorita HCl 10 0-27 tablet by ity of mg tablet 00:00: mouth [place] 00 every 6 Medical (six) Branch hours as needed for Nausea and Vomiting (N/V). magnesium 2020-02 Yes [id number] 400mg Take 1 Univers oxide 400 0-27 tablet by ity o f mg (241.3 00:00: mouth [place] mg 00 daily. Medical magnesium) Branch tablet metoclopram 2020-02 Yes [id number] 10mg Take 1 Univers dorita HCl 10 0-27 tablet by ity of mg tablet 00:00: mouth [place] 00 every 6 Medical (six) Branch hours as needed for Nausea and Vomiting (N/V). magnesium 2020-02 Yes [id number] 400mg Take 1 Univers oxide 400 0-27 tablet by ity o f mg (241.3 00:00: mouth [place] mg 00 daily. Medical magnesium) Branch tablet metoclopram 2020-02 Yes [id number] 10mg Take 1 Univers dorita HCl 10 0-27 tablet by ity of mg tablet 00:00: mouth [place] 00 every 6 Medical (six) Branch hours as needed for Nausea and Vomiting (N/V). magnesium 2020-02 Yes [id number] 400mg Take 1 Univers oxide 400 0-27 tablet by ity o f mg (241.3 00:00: mouth [place] mg 00 daily. Medical magnesium) Branch tablet metoclopram 2020-02 Yes [id number] 10mg Take 1 Univers dorita HCl 10 0-27 tablet by ity of mg tablet 00:00: mouth [place] 00 every 6 Medical (six) Branch hours as needed for Nausea and Vomiting (N/V). magnesium 2020-02 Yes [id number] 400mg Take 1 Univers oxide 400 0-27 tablet by ity o f mg (241.3 00:00: mouth [place] mg 00 daily. Medical magnesium) Branch tablet magnesium 2020-02- No [id number] 400mg Take 1 Univers oxide 400 0-27 07-11 tablet by ity of mg (241.3 00:00: 00:00 mouth [place] mg 00 :00 daily. Medical magnesium) Branch tablet metoclopram 2020-02- No [id number] 10mg Take 1 Univers dorita HCl 10 0-27 05-21 tablet by ity of mg tablet 00:00: 00:00 mouth [place] 00 :00 every 6 Medical (six) Branch hours as needed for Nausea and Vomiting (N/V). doxylamine- 2020-02 Yes Take by Uni vers pyridoxine, 0-25 mouth. ity of vit B6, 10:28: [place] (DICLEGIS) 43 Medical 10-10 mg Branch per tablet [id number] 2020-02 Yes Take by Uni vers 3-dha-epa-f 0-25 mouth. ity of linda oil 10:28: [place] ( 43 Medical GUMMY) 400 Branch mcg-35 mg -25 mg-5 mg Chew doxylamine- 2020-02 Yes Take by Uni vers pyridoxine, 0-25 mouth. ity of vit B6, 10:28: [place] (DICLEGIS) 43 Medical 10-10 mg Branch per tablet [id number] 2020-02 Yes Take by Uni vers 3-dha-epa-f 0-25 mouth. ity of linda oil 10:28: [place] ( 43 Medical GUMMY) 400 Branch mcg-35 mg -25 mg-5 mg Chew Immunizations Ordered Filled Date Status Comments Source Immunization Name Immunization Name [facility] 2021-05-20 Completed University of 00:00: [facility] TDAP 2021-05-20 Completed University of 00:00: [facility] TDAP 2021-05-20 Completed University of :00: [facility] TDAP 2021-05-20 Completed University of 00:00: [facility] TDAP 2021-05-20 Completed University of 00:00: [facility] TDAP 2021-05-20 Completed University of 00:00: [facility] TDAP 2021-05-20 Completed University of 00:00: [facility] TDAP 2021-05-20 Completed University of 00:00: [facility] TDAP 2021-05-20 Completed University of 00:00: [facility] TDAP 2021-05-20 Completed University of 00:00:00 [facility] TDAP 2021-05-20 Completed University of 00:00:00 [facility] TDAP 2021-05-20 Completed University of 00:00:00 [facility] TDAP 2021-05-20 Completed University of 00:00:00 [facility] TDAP 2021-05-20 Completed University of 00:00:00 [facility] TDAP 2021-05-20 Completed University of 00:00:00 [facility] TDAP 2021-05-20 Completed University of 00:00:00 [facility] TDAP 2021-05-20 Completed University of 00:00:00 [facility] TDAP 2021-05-20 Completed University of 00:00:00 [facility] TDAP 2021-05-20 Completed University of 00:00:00 [facility] TDAP 2021-05-20 Completed University of 00:00:00 [facility] COVID-19, mRNA, COVID-19, mRNA, 2021-02-09 Completed Jitendra barnett LNP-S, PF, 30 LNP-S, PF, 30 00:00:00 Medical Group mcg/0.3 mL dose mcg/0.3 mL dose (Pfizer-BioNTech) (Pfizer-BioNTech) SARS-COV-2 COVID-19 2021-02-09 Completed Unive rsity of PFIZER VACCINE 00:00:00 [facility] [place] [facility] SARS-COV-2 COVID-19 2021-02-09 Completed Unive rsity of PFIZER VACCINE 00:00:00 [facility] [place] [facility] SARS-COV-2 COVID-19 2021-02-09 Completed Unive rsity of PFIZER VACCINE 00:00:00 [facility] [place] [facility] SARS-COV-2 COVID-19 2021-02-09 Completed Unive rsity of PFIZER VACCINE 00:00:00 [facility] [place] [facility] SARS-COV-2 COVID-19 2021-02-09 Completed Unive rsity of PFIZER VACCINE 00:00:00 [facility] [place] [facility] SARS-COV-2 COVID-19 2021-02-09 Completed Unive rsity of PFIZER VACCINE 00:00:00 [facility] [place] [facility] SARS-COV-2 COVID-19 2021-02-09 Completed Unive rsity of PFIZER VACCINE 00:00:00 [facility] [place] [facility] SARS-COV-2 COVID-19 2021-02-09 Completed Unive rsity of PFIZER VACCINE 00:00:00 [facility] [place] [facility] SARS-COV-2 COVID-19 2021-02-09 Completed Unive rsity of PFIZER VACCINE 00:00:00 [facility] [place] [facility] SARS-COV-2 COVID-19 2021-02-09 Completed Unive rsity of PFIZER VACCINE 00:00:00 [facility] [place] [facility] SARS-COV-2 COVID-19 2021-02-09 Completed Unive rsity of PFIZER VACCINE 00:00:00 [facility] [place] [facility] SARS-COV-2 COVID-19 2021-02-09 Completed Unive rsity of PFIZER VACCINE 00:00:00 [facility] [place] [facility] SARS-COV-2 COVID-19 2021-02-09 Completed Unive rsity of PFIZER VACCINE 00:00:00 [facility] [place] [facility] SARS-COV-2 COVID-19 2021-02-09 Completed Unive rsity of PFIZER VACCINE 00:00:00 [facility] [place] [facility] SARS-COV-2 COVID-19 2021-02-09 Completed Unive rsity of PFIZER VACCINE 00:00:00 [facility] [place] [facility] SARS-COV-2 COVID-19 2021-02-09 Completed Unive rsity of PFIZER VACCINE 00:00:00 [facility] [place] [facility] SARS-COV-2 COVID-19 2021-02-09 Completed Unive rsity of PFIZER VACCINE 00:00:00 [facility] [place] [facility] SARS-COV-2 COVID-19 2021-02-09 Completed Unive rsity of PFIZER VACCINE 00:00:00 [facility] [place] [facility] SARS-COV-2 COVID-19 2021-02-09 Completed Unive rsity of PFIZER VACCINE 00:00:00 [facility] [place] [facility] SARS-COV-2 COVID-19 2021-02-09 Completed Unive rsity of PFIZER VACCINE 00:00:00 [facility] [place] [facility] COVID-19, mRNA, COVID-19, mRNA, 2021-01-19 Completed Jitendra barnett LNP-S, PF, 30 LNP-S, PF, 30 00:00:00 Medical Group mcg/0.3 mL dose mcg/0.3 mL dose (Pfizer-BioNTech) (Pfizer-BioNTech) SARS-COV-2 COVID-19 2021-01-19 Completed Unive rsity of PFIZER VACCINE 00:00:00 [facility] Branch SARS-COV-2 COVID-19 2021-01-19 Completed Unive rsity of PFIZER VACCINE 00:00:00 [facility] Branch SARS-COV-2 COVID-19 2021-01-19 Completed Unive rsity of PFIZER VACCINE 00:00:00 [facility] Branch SARS-COV-2 COVID-19 2021-01-19 Completed Unive rsity of PFIZER VACCINE 00:00:00 [facility] Branch SARS-COV-2 COVID-19 2021-01-19 Completed Unive rsity of PFIZER VACCINE 00:00:00 [facility] Branch SARS-COV-2 COVID-19 2021-01-19 Completed Unive rsity of PFIZER VACCINE 00:00:00 [facility] Branch SARS-COV-2 COVID-19 2021-01-19 Completed Unive rsity of PFIZER VACCINE 00:00:00 [facility] Branch SARS-COV-2 COVID-19 2021-01-19 Completed Unive rsity of PFIZER VACCINE 00:00:00 [facility] Branch SARS-COV-2 COVID-19 2021-01-19 Completed Unive rsity of PFIZER VACCINE 00:00:00 [facility] Branch SARS-COV-2 COVID-19 2021-01-19 Completed Unive rsity of PFIZER VACCINE 00:00:00 [facility] [place] [facility] SARS-COV-2 COVID-19 2021-01-19 Completed Unive rsity of PFIZER VACCINE 00:00:00 [facility] Branch SARS-COV-2 COVID-19 2021-01-19 Completed Unive rsity of PFIZER VACCINE 00:00:00 [facility] Branch SARS-COV-2 COVID-19 2021-01-19 Completed Unive rsity of PFIZER VACCINE 00:00:00 [facility] Branch SARS-COV-2 COVID-19 2021-01-19 Completed Unive rsity of PFIZER VACCINE 00:00:00 [facility] [place] [facility] SARS-COV-2 COVID-19 2021-01-19 Completed Unive rsity of PFIZER VACCINE 00:00:00 [facility] [place] [facility] SARS-COV-2 COVID-19 2021-01-19 Completed Unive rsity of PFIZER VACCINE 00:00:00 [facility] [place] [facility] SARS-COV-2 COVID-19 2021-01-19 Completed Unive rsity of PFIZER VACCINE 00:00:00 [facility] [place] [facility] SARS-COV-2 COVID-19 2021-01-19 Completed Unive rsity of PFIZER VACCINE 00:00:00 [facility] [place] [facility] SARS-COV-2 COVID-19 2021-01-19 Completed Unive rsity of PFIZER VACCINE 00:00:00 [facility] [place] [facility] SARS-COV-2 COVID-19 2021-01-19 Completed Unive rsity of PFIZER VACCINE 00:00:00 [facility] [place] [facility] Influenza Virus 2020-12-23 Completed Universit y of Vaccine Quad IM, 00:00:00 [place] Me dical Preserv and ABX Branch Free 6 MO-64 YRS Influenza Virus 2020-12-23 Completed Universit y of Vaccine [facility] IM, 00:00:00 [place] Me dical Preserv and ABX Branch Free 6 MO-64 YRS Influenza Virus 2020-12-23 Completed Universit y of Vaccine [facility] IM, 00:00:00 [place] Me dical Preserv and ABX Branch Free 6 MO-64 YRS Influenza Virus 2020-12-23 Completed Universit y of Vaccine [facility], 00:00:00 [place] Me dical Preserv and ABX Branch Free 6 MO-64 YRS Influenza Virus 2020-12-23 Completed Universit y of [facility], 00:00:00 [place] Me dical Preserv and ABX Branch Free 6 MO-64 YRS Influenza Virus 2020-12-23 Completed Universit y of [facility], 00:00:00 [place] Me dical Preserv and ABX Branch Free 6 MO-64 YRS Influenza Virus 2020-12-23 Completed Universit y of [facility], 00:00:00 [place] Me dical Preserv and ABX Branch Free 6 MO-64 YRS Influenza Virus 2020-12-23 Completed Universit y of Vaccine [facility], 00:00:00 [place] Me dical Preserv and ABX Branch Free 6 MO-64 YRS Influenza Virus 2020-12-23 Completed Universit y of Vaccine [facility], 00:00:00 [place] Me dical Preserv and ABX Branch Free 6 MO-64 YRS Influenza Virus 2020-12-23 Completed Universit y of Vaccine [facility] IM, 00:00:00 [place] Me dical Preserv and ABX Branch Free 6 MO-64 YRS Influenza Virus 2020-12-23 Completed Universit y of Vaccine [facility], 00:00:00 [place] Me dical Preserv and ABX Branch Free 6 MO-64 YRS Influenza Virus 2020-12-23 Completed Universit y of Vaccine [facility], 00:00:00 [place] Me dical Preserv and ABX Branch Free 6 MO-64 YRS Influenza Virus 2020-12-23 Completed Universit y of [facility]ine [facility], 00:00:00 [place] Me dical Preserv and ABX Branch Free 6 MO-64 YRS Influenza Virus 2020-12-23 Completed Universit y of Vaccine [facility], 00:00:00 [place] Me dical Preserv and ABX Branch Free 6 MO-64 YRS Influenza Virus 2020-12-23 Completed Universit y of Vaccine [facility], 00:00:00 [place] Me dical Preserv and ABX Branch Free 6 MO-64 YRS Influenza Virus 2020-12-23 Completed Universit y of Vaccine [facility], 00:00:00 [place] Me dical Preserv and ABX Branch Free 6 MO-64 YRS Influenza Virus 2020-12-23 Completed Universit y of Vaccine [facility], 00:00:00 [place] Me dical Preserv and ABX Branch Free 6 MO-64 YRS Influenza Virus 2020-12-23 Completed Universit y of Vaccine [facility] IM, 00:00:00 [place] Me dical Preserv and ABX Branch Free 6 MO-64 YRS Influenza Virus 2020-12-23 Completed Universit y of Vaccine [facility], 00:00:00 [place] Me dical Preserv and ABX Branch Free 6 MO-64 YRS Influenza Virus 2020-12-23 Completed Universit y of Vaccine [facility], 00:00:00 [place] Me dical Preserv and ABX Branch Free 6 MO-64 YRS Influenza Virus 2013-11-27 Completed Universit y of Vaccine [facility] IM 3+ 00:00:00 [facility] [place] [facility] Branch Influenza Virus Unknown Completed Universit y of Vaccine Quad IM, [facility] dical Preserv and ABX Branch Free 6 MO-64 YRS (FLUCELVAX) SARS-COV-2 COVID-19 Unknown Completed Unive rsity of PFIZER VACCINE [facility] [place] [facility] SARS-COV-2 COVID-19 Unknown Completed Unive rsity of PFIZER VACCINE [facility] [place] [facility] Influenza Virus Unknown Completed Universit y of Vaccine Quad IM 3+ [facility] Vital Signs Vital Name Observation Time Observation Value Comments Source Systolic blood 2021-09-07 20:08:00 117 mm[Hg] Univer sity of pressure [facility] Diastolic blood 2021-09-07 20:08:00 78 mm[Hg] Unive rsity of pressure [facility] Heart rate 2021-09-07 20:08:00 90 /min Universi ty of [facility] Body temperature 2021-09-07 20:08:00 36.89 Amy Univ ersity of [facility] Branch Respiratory rate 2021-09-07 20:08:00 18 /min Univ ersity of [facility] Body height 2021-09-07 20:08:00 160 cm Universi ty of [facility] Body weight 2021-09-07 20:08:00 73.483 kg Universi ty of [facility] BMI 2021-09-07 20:08:00 28.70 kg/m2 Universi ty of [facility] Systolic blood 2021-07-18 21:30:00 120 mm[Hg] Univer sity of pressure [facility] Diastolic blood 2021-07-18 21:30:00 73 mm[Hg] Unive rsity of [facility] Body temperature 2021-07-18 21:30:00 36.67 Amy Univ ersity of [facility] Heart rate 2021-07-18 08:55:00 74 /min Universi ty of [facility] Respiratory rate 2021-07-18 08:55:00 18 /min Univ ersity of [facility] Oxygen saturation in 2021-07-18 08:55:00 99 /min University Arterial blood by [facility] Pulse oximetry Branch Body height 2021-07-17 09:12:00 160 cm [facility]i [facility] [place] [facility] Body weight 2021-07-17 09:12:00 85.639 kg Universi ty of [facility] BMI 2021-07-17 09:12:00 33.44 kg/m2 Universi ty of [facility] Systolic blood 2021-07-15 15:23:00 128 mm[Hg] Univer sity of pressure [facility] Diastolic blood 2021-07-15 15:23:00 83 mm[Hg] Unive rsity of pressure [facility] Heart rate 2021-07-15 15:23:00 83 /min [facility] [place] [facility] Body temperature 2021-07-15 15:23:00 37.06 Amy [facility] [place] [facility] Body height 2021-07-15 15:23:00 160 cm [facility] [place] [facility] Body weight 2021-07-15 15:23:00 84.732 kg [facility]i [facility] [place] [facility] BMI 2021-07-15 15:23:00 33.09 kg/m2 Universi ty of [facility] Heart rate 2021-07-09 20:45:00 103 /min Universi ty of [facility] Oxygen saturation in 2021-07-09 20:45:00 98 /min University Arterial blood by [facility] Pulse oximetry Branch Systolic blood 2021-07-09 18:52:00 115 mm[Hg] Univer sity of pressure [facility] Diastolic blood 2021-07-09 18:52:00 78 mm[Hg] Unive rsity of pressure [facility] Body temperature 2021-07-09 18:52:00 36.89 Amy Univ ersity of [facility] Respiratory rate 2021-07-09 18:52:00 20 /min Univ ers[facility] [place] [facility] Body weight 2021-07-09 18:52:00 83.371 kg [facility] [place] [facility] BMI 2021-07-09 18:52:00 32.56 kg/m2 Universi ty of [facility] Systolic blood 2021-07-07 18:12:00 107 mm[Hg] Univer sity of pressure [place] [facility] Diastolic blood 2021-07-07 18:12:00 76 mm[Hg] Unive rsity of pressure [facility] Heart rate 2021-07-07 18:12:00 78 /min [facility] [place] [facility] Body temperature 2021-07-07 18:12:00 36.61 Amy [facility] ers[facility] of [facility] Respiratory rate 2021-07-07 18:12:00 18 /min Univ ersity of [facility] Body height 2021-07-07 18:12:00 160 cm [facility] [place] [facility] Body weight 2021-07-07 18:12:00 83.734 kg [facility] [place] [facility] BMI 2021-07-07 18:12:00 32.70 kg/m2 [facility] [place] [facility] Systolic blood 2021-06-30 14:42:00 120 mm[Hg] Univer sity of pressure [place] [facility] Diastolic blood 2021-06-30 14:42:00 83 mm[Hg] Unive rsity of pressure [place] [facility] Heart rate 2021-06-30 14:42:00 84 /min [facility] [place] [facility] Body temperature 2021-06-30 14:42:00 36.89 Amy [facility] [place] [facility] Body height 2021-06-30 14:42:00 160 cm [facility] [place] [facility] Body weight 2021-06-30 14:42:00 83.643 kg [facility] [place] [facility] BMI 2021-06-30 14:42:00 32.66 kg/m2 [facility] [place] [facility] Systolic blood 2021-06-24 12:23:00 104 mm[Hg] Univer sity of pressure [facility] Diastolic blood 2021-06-24 12:23:00 51 mm[Hg] Unive rsity of pressure [facility] Heart rate 2021-06-24 12:23:00 98 /min [facility] [place] [facility] Body temperature 2021-06-24 12:23:00 36.17 Amy Univ ersity of [facility] Respiratory rate 2021-06-24 12:23:00 16 /min Univ ersity of [facility] Oxygen saturation in 2021-06-24 12:23:00 98 /min University of Arterial blood by [facility] Pulse oximetry Branch Body weight 2021-06-23 23:16:00 83.008 kg [facility] [place] [facility] BMI 2021-06-23 23:16:00 32.42 kg/m2 [facility]i ty of [facility] Systolic blood 2021-06-15 15:14:00 110 mm[Hg] Univer sity of pressure [facility] Diastolic blood 2021-06-15 15:14:00 79 mm[Hg] Unive rsity of pressure [place] [facility] Heart rate 2021-06-15 15:14:00 76 /min Universi ty of [facility] Body temperature 2021-06-15 15:14:00 36.72 Amy [facility] Respiratory rate 2021-06-15 15:14:00 18 /min Univ [facility] [place] [facility] Body height 2021-06-15 15:14:00 160 cm [facility] [place] [facility] Body weight 2021-06-15 15:14:00 83.915 kg [facility] [place] [facility] BMI 2021-06-15 15:14:00 32.77 kg/m2 [facility] [place] [facility] Systolic blood 2021-06-02 14:45:00 111 mm[Hg] Univer sity of pressure [place] [facility] Diastolic blood 2021-06-02 14:45:00 78 mm[Hg] Unive rsity of pressure [place] [facility] Heart rate 2021-06-02 14:45:00 107 /min [facility] [place] [facility] Body temperature 2021-06-02 14:45:00 36.83 Amy [facility] [place] [facility] Respiratory rate 2021-06-02 14:45:00 18 /min [facility] [place] [facility] Systolic blood 2021-06-01 20:43:00 115 mm[Hg] Univer sity of pressure [place] [facility] Diastolic blood 2021-06-01 20:43:00 84 mm[Hg] Unive rsity of pressure [place] [facility] Heart rate 2021-06-01 20:43:00 103 /min [facility] [place] [facility] Respiratory rate 2021-06-01 20:43:00 18 /min [facility] [place] [facility] Oxygen saturation in 2021-06-01 20:43:00 97 /min University of Arterial blood by [facility] Pulse oximetry Branch Body temperature 2021-06-01 19:20:00 36.5 Amy [facility] [place] [facility] Body weight 2021-06-01 19:20:00 83.462 kg [facility] [place] [facility] BMI 2021-06-01 19:20:00 32.59 kg/m2 [facility] [place] [facility] Systolic blood 2021-05-30 01:30:00 121 mm[Hg] Univer sity of pressure [place] [facility] Diastolic blood 2021-05-30 01:30:00 85 mm[Hg] Unive rsity of pressure [place] [facility] Heart rate 2021-05-30 01:30:00 97 /min [facility] [place] [facility] Oxygen saturation in 2021-05-30 01:30:00 100 /min [facility] Arterial blood by [facility] Pulse oximetry Branch Body temperature 2021-05-30 00:06:00 36.5 Amy [facility] Respiratory rate 2021-05-30 00:06:00 18 /min [facility] Body height 2021-05-29 23:41:00 160 cm [facility] Body weight 2021-05-29 23:41:00 82.555 kg [facility] BMI 2021-05-29 23:41:00 32.24 kg/m2 [facility] BP Diastolic 2021-02-11 00:00:00 70 mm[Hg] [facility] Height 2021-02-11 00:00:00 63 [in_i] [facility] BMI (Body Mass 2021-02-11 00:00:00 29.1 kg/m2 [facility] Group BP Systolic 2021-02-11 00:00:00 103 mm[Hg] [facility] Body Weight 2021-02-11 00:00:00 2624 [oz_av] [facility] Procedures Procedure Date / Time Performing Clinician Source Performed EXTERNAL PROVIDER RECORDS 2022-05-12 05:01:00 [facility] CBC WITH DIFF 2021-07-18 09:03:00 [facility] CENTRAL NEURAXIAL BLOCK 2021-07-17 18:12:40 Valerie Ortiz [facility] ADC OR NASREEN CAMEJO - RPR 2021-07-17 11:04:00 Benita Pollard [facility] HEPATITIS B SURFACE 2021-07-17 11:03:00 Benita Pollard [facility] ANTIGEN [facility] HIV 1/2 AG-AB WITH REFLEX 2021-07-17 11:03:00 Benita Pollard [facility] CBC WITH DIFF 2021-07-17 11:02:00 Benita Pollard [facility] HB ABO GROUPING 2021-07-17 10:00:00 [facility] RHO (D) IMMUNE GLOBULIN 2021-07-17 10:00:00 Benita Pollard [facility] ASSIGNMENT OF BENEFITS 2021-07-17 09:07:13 Doctor Unassigned, [facility] CONSENT/REFUSAL FOR 2021-07-17 08:57:34 Doctor Unakendra, [facility] DIAGNOSIS AND TREATMENT [place] [place] NON-STRESS TEST 2021-07-15 17:43:48 Anais Barros [facility] POCT URINALYSIS W/O 2021-07-15 00:00:00 Anais Barros [facility] SPECIFIC GRAVITY Medical Alpha CONSENT/REFUSAL FOR 2021-07-09 18:19:31 Doctor Unakendra, [facility] DIAGNOSIS AND TREATMENT [place] [facility] ASSIGNMENT OF BENEFITS 2021-07-09 18:18:41 Doctor Unassigned, [facility] [place] POCT URINALYSIS W/O 2021-07-07 18:16:00 Benita Pollard [facility] SPECIFIC GRAVITY Medical Alpha >14 WEEKS US 2021-06-30 17:08:[address] [facility] LIMITED [facility] NON-STRESS TEST 2021-06-30 17:07:15 Anais Barros [facility] DSU PRE-OP 2021-06-30 05:01:00 Doctor Christina, [facility] [place] POCT URINALYSIS W/O 2021-06-30 00:00:00 Anais Barros [facility] SPECIFIC GRAVITY Medical Alpha CBC WITH DIFF 2021-06-24 13:17:00 Benita Pollard [facility] AMYLASE 2021-06-24 00:50:00 Benita Pollard [facility] LIPASE 2021-06-24 00:50:00 [facility] COMP. METABOLIC PANEL 2021-06-24 00:50:00 Benita Pollard [facility] ([id number]) Medical Alpha CBC WITH DIFF 2021-06-24 00:50:00 [facility] URINALYSIS 2021-06-24 00:50:00 Benita Pollard [place] [facility] COVID-19 (ID NOW RAPID 2021-06-24 00:50:[address] [facility] TESTING) [facility] ADC CLC OR LCC ONLY - WET 2021-06-23 23:47:00 Benita Pollard [facility] NOTICE OF PRIVACY 2021-06-23 23:15:03 Doctor Unassgunnar, [facility]REFUSAL FOR 2021-06-23 23:14:[address] [facility]NOSIS [facility]INALYSIS W/O 2021-06-15 00:00:00 Benita Pollard [facility] SPECIFIC GRAVITY [facility] POCT URINALYSIS W/O 2021-06-02 00:00:00 Anais Barros [facility] SPECIFIC GRAVITY [facility] XR ANKLE 3+ VW RIGHT 2021-06-01 20:01:58 Aydin Diaz [facility] URINALYSIS 2021-05-30 01:18:00 AdCelena riley [place] [facility] ADC ONLY - FERN TEST 2021-05-30 00:18:00 Celena Burns [facility] NOTICE OF PRIVACY 2021-05-29 23:27:39 Doctor Christina [facility]REFUSAL FOR 2021-05-29 23:26:[address] [facility] Chole[facility] Procedure on Knee [facility] Encounters Start End Encounter Admission Attending Care Care Encounter Source Date/Time Date/Time Type Type Clinicians Facility Department ID 2021-07-09 Outpatient P [facility] ABI [id number] Univers 18:41:40 [facility] 2023-01-10 2023-01-10 Outpatient ANAM MENDIETA [id number] 023 [place] 09:29:29 09:29:29 1113 F Tae 2023-01-05 2023-01-05 Outpatient ANAM MENDIETA [id number] 023 [place] 16:52:53 16:52:53 1108 F Tae 2022-12-30 2022-12-30 Outpatient [facility] [id number] 023 [place] 11:51:52 11:51:52 1102 F Tae 2022-12-28 2022-12-28 Outpatient [facility] [id number] 023 [place] 09:38:00 09:38:00 1031 F Tae 2022-12-26 2022-12-26 Outpatient GC_GCBZW_Ka PRIV PRIV 276 [id number] [facility] 00:00:00 00:00:00 diyala_S [id number] Medic al 2022-05-12 2022-05-12 Orders Doctor ANNETTE 1.2.840.114 [id number] Univers 00:00:00 00:00:00 Only Unassigned, RAMYA 350.1.13.10 ity of [place] [facility] 4.2.7.2.686 Alli as [id number] [address] 2022-03-17 2022-03-17 Outpatient R LATRICE [facility] [id number] Univers 10:30:00 10:30:00 ity [facility] 2021-10-01 2021-10-01 Outpatient R LATRICE [facility] [id number] Univers 10:30:00 10:30:00 ity [facility] 2021-09-07 2021-09-07 Outpatient R LATRICE [facility] [id number] Univers 15:00:00 16:01:34 ity [facility] 2021-09-07 2021-09-07 Routine Latrice [facility] 1.2.547.270 [id number] Univers 15:00:00 16:01:34 Cam [place] 350.1.13.10 ity [place] [id number] [address] 2021-08-18 2021-08-18 Outpatient R LATRICE [facility] [id number] [id number] Univers 13:00:00 13:00:00 ity [facility] 2021-07-17 2021-07-18 Inpatient P LATRICE [facility] ABI [id number] Univers 03:55:00 18:05:00 ity of [facility] 2021-07-17 2021-07-18 Hospital Benita Pollard [facility] 1.2.840.114 [id number] Univers 03:55:00 18:05:00 Encounter Paresh TA 350.1.13.10 [facility] 4.2.7.2.686 [place] [facility] [id number] [facility] 083 Alpha 2021-07-17 2021-07-17 Anesthesia Doristanstacy, R [facility] 1.2.840.1 14 [id number] Univers 12:28:00 15:01:00 Event Shanon Melton 350.1.13.10 ity [facility] 4.2.7.2.686 [facility] HURRICANE [id number] [facility] 083 Alpha 2021-07-16 2021-07-16 Laboratory Only, Adc Test [facility] 1.2.840. 114 [id number] Univers 10:00:00 10:15:00 Only Benita Pollard CELY 350.1.13.10 ity [facility] 4.2.7.2.686 [facility] [id number] [facility] 353 Alpha 2021-07-16 2021-07-16 Outpatient R BENITA POLLARD [facility] [id number] Univers 10:00:00 10:00:00 ity of [facility] 2021-07-15 2021-07-15 Outpatient R PAPO [facility] [id number] Univers 10:15:00 11:46:53 ANAIS itkyler of [facility] 2021-07-15 2021-07-15 Routine Papo [facility] 1.2.805.765 [id number] Univers 10:15:00 11:46:53 Anais TA 350.1.13.10 ity of [place] 4.2.7.2.686 [facility] PROFESSIO [id number] [place] dical [place] [address] [address] [facility] 2021-07-09 2021-07-09 Outpatient P BENITA POLLARD [facility] [place] [id number] Univers 13:17:00 16:45:00 ity of [facility] 2021-07-09 2021-07-09 Hospital Benita Pollard [facility] 1.2.840.114 [id number] Univers 13:17:00 16:45:00 Encounter Cam [place] 350.1.13.10 ity of [place] 4.2.7.2.686 [place] [id number] [place] 826373 Alpha 2021-07-09 2021-07-09 Telephone Latrice [facility] 1.2.840.114 [id number] Univers 00:00:00 00:00:00 [place] 350.1.13.10 i ty of [place] 4.2.7.2.686 [place] [id number] La dical NAL [address] [place] [address] 2021-07-07 2021-07-07 Outpatient R BENITA POLLARD [facility] [id number] Univers 13:00:00 13:37:20 ity of [facility] 2021-07-07 2021-07-07 Routine Latrice [facility] 1.2.546.924 [id number] Univers 13:00:00 13:37:20 Cam [place] 350.1.13.10 ity of [place].2.[place] [id number] La dic[address] 2021-06-30 2021-06-30 Outpatient R PAPO [facility] [id number] Univers 09:15:00 11:12:28 ANAIS ity of [facility] 2021-06-30 2021-06-30 Routine [facility] 1.2.075.707 [id number] Univers 09:15:00 11:12:28 Anais CELY 350.1.13.10 ity of [place] 4.2.7.2.686 [place] [id number] La dical NAL [address] [place] [address] 2021-06-30 2021-06-30 Orders Doctor BRYANT 1.2.840.114 [id number] Univers 00:00:00 00:00:00 Only Unassigned, RAMYA 350.1.13.10 ity of [place] [facility] 4.2.7.2.686 Alli as [phone] [facility] 009 Alpha 2021-06-23 2021-06-24 Outpatient P BENITA POLLARD [facility] [place] [id number] Univers 18:23:00 09:45:00 ity of [facility] 2021-06-23 2021-06-24 Hospital Benita Pollard [facility] 1.2.840.114 [id number] Univers 18:23:00 09:45:00 Encounter Cam [place] 350.1.13.10 [place]y [place]2.7.2.[place] [id number] [facility] 083 Alpha 2021-06-16 2021-06-16 Telephone [facility] 1.2.840.114 [id number] Univers 00:00:00 00:00:00 Anais [place] 350.1.13.10 i ty of [place] 4.2.7.2.686 [place] [id number] La dical NAL [address] [place] [address] 2021-06-15 2021-06-15 Outpatient R LATRICE BENITA [facility] [id number] Univers 09:45:00 10:19:37 ity of [facility] 2021-06-15 2021-06-15 [facility]ine [facility] 1.2.833.553 [id number] Univers 09:45:00 10:19:37 Cam [place] 350.1.13.10 ity of [place] 4.2.7.2.[place] [id number] La dical NAL [address] [place] [address] 2021-06-02 2021-06-02 Outpatient R PAPO [facility] [id number] Univers 09:30:00 10:01:11 ANAIS itkyler [facility] 2021-06-02 2021-06-02 Routine [facility] 1.2.960.754 [id number] Univers 09:30:00 10:01:11 Anais [place] 350.1.13.10 ity of [place] 4[place].7.2.[place] [id number] La dical NAL [address] [place] [address] 2021-06-02 2021-06-02 Outpatient R ALIZE [facility] [id number] Univers 08:15:00 08:15:00 HORTENSIA ity [facility] 2021-06-01 2021-06-01 Emergency X [facility] ERT [id number] Univers 14:21:00 15:48:00 AYDIN ity [facility] 2021-06-01 2021-06-01 Emergency [facility] 1.2.252.858 [id number] Univers 14:21:00 15:48:00 Aydin Padilla CELY 350.1.13.10 i ty of [place].2.7.2.[place] [id number] [address] 2021-06-01 2021-06-01 Telephone Benita Pollard [facility] 1.2.840.114 [id number] Univers 00:00:00 00:00:00 Paresh TA 350.1.13.10 i ty of [place] 4.2.7.2.686 [place] [id number] La dical NAL [address] [place] [address] 2021-05-29 2021-05-29 [facility] [id number] Univers 18:44:00 20:56:00 CELENA itkyler [facility] 2021-05-29 2021-05-29 [facility] 1.2.490.591 [id number] Univers 18:44:00 20:56:00 Celena TA 350.1.13.10 ity [facility] 4.2.7.2.686 [place] [id number] [address] 2021-05-29 2021-05-29 Telephone [facility] 1.2.840.114 [id number] Univers 00:00:00 00:00:00 Anais TA 350.1.13.10 i ty of [place] 4.2.7.2.686 [place] [id number] La dical NAL [address] [place] [address] 2021-05-26 2021-05-26 [facility] [id number] Univers 13:00:00 13:24:25 ANAIS itkyler [facility] 2021-05-26 2021-05-26 Outpatient R PAPO [facility] [id number] Univers 13:00:00 13:00:00 ANAIS ity of [facility] 2021-05-26 2021-05-26 Telephone Isabelle Pollarden [facility] 1.2.840.114 [id number] Univers 00:00:00 00:00:00 Cam LEANDROTON 350.1.13.10 i ty of [place] [phone] La dical NAL [address] [facility] 2021-05-20 2021-05-20 Outpatient R LATRICE BENITA [facility] [id number] Univers 13:15:00 13:44:33 ity of [facility] 2021-05-20 2021-05-20 Routine Latrice Benita [facility] 1.2.424.114 [id number] Univers 13:15:00 13:44:33 Paresh TA 350.1.13.10 ity [place] 4[place]2.7.2.[place] [id number] La dical NAL [address] [facility] 2021-05-20 2021-05-20 Outpatient R BENITA POLLARD [facility] [id number] Univers 13:15:00 13:44:33 ity of [facility] 2021-05-15 2021-05-15 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 2021-04-21 2021-04-21 Patient Doctor [facility] 1.2.840.114 [id number] Univers 00:00:00 00:00:00 Secure Msg Unassigned CELY 350.1.13.10 ity [place].7.2.686 [place] [id number] [address] 2021-04-20 2021-04-20 Case Pollard [facility] 1.2.791.924 [id number] Univers 00:00:00 00:00:00 Management Cam CELY 350.1.13.10 ity [facility] 4.2.7.2.686 [place] [id number] [address] 2021-04-17 2021-04-17 Outpatient R BENITA POLLARD [facility] [id number] Univers 13:00:00 13:27:43 ity of [facility] 2021-04-17 2021-04-17 Routine Latrice [facility] 1.2.840.114 [id number] Univers 13:00:00 13:27:43 Cam LILIANA 350.1.13.10 i ty of [place] [facility] [place]7.2.[place] [id number] [address] 2021-04-17 2021-04-17 Outpatient R BENITA POLLARD [facility] [id number] Univers 13:00:00 13:27:43 ity of [facility] 2021-04-16 2021-04-16 Telephone Latrice [facility] 1.2.840.114 [id number] Univers 00:00:00 00:00:00 Paresh TA 350.1.13.10 i ty of [facility] 4.2.7.2.[place] [id number] [address] 2021-04-08 2021-04-08 Outpatient R BENITA POLLARD [facility] [id number] Univers 16:15:00 16:15:00 ity of [facility] 2021-03-25 2021-03-25 Outpatient R PAPO [facility] [id number] Univers 16:15:00 16:15:00 [facility]-18 2021-03-18 Outpatient R PAPO [facility] [id number] Univers 14:00:00 14:00:00 ANAIS kyler [facility] 2021-03-17 2021-03-17 Outpatient P MARI LIU [facility] [id number] Univers 13:30:00 14:04:49 MARI LIU kyler [facility] 2021-03-17 2021-03-17 Jewelry Store Manager Ultrasound, Adc [facility] 1.2 .840.114 [id number] Univers 13:30:00 14:04:49 Visit Mari Liu CELY 350.1.13.10 ity of [place].7.2.[place] [id number] La dical NAL [address] [facility] 2021-03-17 2021-03-17 Outpatient P MARI LIU [facility] [id number] Univers 13:30:00 14:04:49 MARI LIU kyler [facility] 2021-02-27 2021-02-27 Jewelry Store Manager 2, [facility] 1.2.840.114 [id number] Univers 09:00:00 09:00:00 Visit Benita Pollard 350.1.13.10 ity of [place].7.2.[place] [id number] [facility] 2021-02-27 2021-02-27 Outpatient R POLLARD BENITA [facility] [id number] Univers 09:00:00 08:52:31 ity [facility] 2021-02-27 2021-02-27 Outpatient R BENITA POLLARD [facility] [id number] Univers 09:00:00 08:52:31 ity [facility] 2021-02-26 2021-02-26 Case PollardIsabelleen [facility] 1.2.047.474 [id number] Univers 00:00:00 00:00:00 Management Paresh TA 350.1.13.10 ity of [place] 4[place]2.7.2.[place] [id number] La dical NAL [address] [facility] 2021-02-24 2021-02-24 Outpatient R BENITA POLLARD [facility] [id number] Univers 15:30:00 16:04:48 ity of [facility] 2021-02-24 2021-02-24 Routine Latrice [facility] 1.2.561.881 [id number] Univers 15:30:00 16:04:48 Cam [place] 350.1.13.10 ity of [place] 4[place].2.[place] [id number] La dic[address] 2021-02-24 2021-02-24 Outpatient R BENITA POLLARD [facility] [id number] Univers 15:30:00 16:04:48 ity of [facility] 2021-02-23 2021-02-23 Telephone Latrice [facility] 1.2.840.114 [id number] Univers 00:00:00 00:00:00 Cam [place] 350.1.13.10 i ty of [place] 4[place]2.7.2.686 [place] [id number] La dical [address] 2021-02-18 2021-02-18 Outpatient R LATRICE [facility] [id number] Univers 11:00:00 11:31:25 ity of [facility] 2021-02-18 2021-02-18 Routine Latrice [facility] 1.2.169.920 [id number] Univers 11:00:00 11:31:25 Cam [place] 350.1.13.10 ity of [place] 4[place].7.2.[place] [id number] La dic[address] 2021-02-16 2021-02-16 Orders Doctor ANNETTE 1.2.840.114 [id number] Univers 00:00:00 00:00:00 Only Unassigned, RAMYA 350.1.13.10 ity of [place] [facility] 4.2.7.2.686 Alli as [id number] [address] 2021-02-14 2021-02-14 Outpatient Koudela_A [facility] [id number] [place] 04:44:00 04:44:00 [facility] 2021-02-11 2021-02-11 Outpatient Koudela_A CINDYG [facility] 78742 -2020 [place] 09:54:00 09:54:00 [facility] 2021-02-11 2021-02-11 Heide [facility] [place] - [id number] M atagor 00:00:00 00:00:00 [place] da PA-C: [address] [facility] [place] - [address], [facility], [place] [address] , Ph. 2021-02-10 2021-02-10 Outpatient Koudela_A G [facility] [id number] -2020 [place] 10:48:00 10:48:00 1214 [facility] 2021-02-09 2021-02-09 Outpatient Valerie LIU [facility] [id number] Univers 08:50:00 08:50:00 GIL mejia [facility] 2021-02-09 2021-02-09 Outpatient Valerie LIU [facility] [id number] Univers 08:50:00 08:42:48 GIL kyler [facility] 2021-02-09 2021-02-09 Imm/Inj Nurse, Adc Pob Immunization [facility] 1.2.840.114 [id number] Univers 08:42:38 08:42:48 Visit Gil Liu 350.1.13 .10 ity [facility] 4.2.7.2.[place] [phone] Me dical NAL [address] [facility] 2021-02-09 2021-02-09 Outpatient Yissel_Baltazar [facility] [id number] -2020 [place] 05:15:00 05:15:00 1213 [facility] 2021-02-05 2021-02-05 Telephone Benita Pollard [facility] 1.2.840.114 [id number] Univers 00:00:00 00:00:00 Paresh TA 350.1.13.10 i ty [facility] 4.2.7.2.[place] [id number] La dical NAL [address] [facility] 2021-02-03 2021-02-03 Telephone Papo [facility] 1.2.840.114 [id number] Univers 00:00:00 00:00:00 Anais TA 350.1.13.10 i ty [facility] 4.2.7.2.[place] [id number] Me dical NAL [address] [facility] 2021-01-19 2021-01-19 Outpatient R ALEXA [facility] [id number] Univers 14:10:00 14:10:00 GIL mejia [facility] 2021-01-19 2021-01-19 Outpatient R PAPO [facility] [id number] Univers 13:45:00 13:45:00 ANAIS kyler 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 2021-01-19 2021-01-19 Imm/Inj Nurse, Adc Pob Immunization [facility] 1.2.840.114 [id number] Univers 13:06:53 13:06:59 Visit Gil Liu 350.1.13 .10 ity [facility] 4.2.7.2.[place] [id number] Me dical NAL [address] [facility] 2021-01-19 2021-01-19 Outpatient R PAPO [facility] [id number] Univers 11:30:00 12:17:35 ANAIS mejia [facility] 2021-01-19 2021-01-19 Outpatient R PAPO [facility] [id number] Univers 11:30:00 12:17:35 ANAIS mejia [facility] 2021-01-19 2021-01-19 Routine Papo [facility] 1.2.145.947 [id number] Univers 11:20:46 12:17:35 Anais TA 350.1.13.10 ity of [place].2.[place] [id number] La dical [address] 2021-01-16 2021-01-16 Telephone Benita Pollard [facility] 1.2.840.114 [id number] Univers 00:00:00 00:00:00 Paresh TA 350.1.13.10 i ty of [place] 4[place].7.2.[place] [id number] La dical [address] 2020-12-23 2020-12-23 Outpatient R PAPO [facility] [id number] Univers 15:30:00 15:50:23 ANAIS itkyler [facility] 2020-12-23 2020-12-23 Nurse Nurse, [facility] 1.2.840.114 [id number] Univers 15:23:11 15:50:23 Visit Anais Barros 350.1.13.10 ity of [place] [id number] [address] 2020-12-23 2020-12-23 Outpatient R [facility] [id number] Univers 15:30:00 15:30:00 ity [facility] 2020-12-23 2020-12-23 Outpatient R [facility] [id number] Univers 10:00:00 10:00:00 ity [facility] 2020-12-22 2020-12-22 Outpatient R LATRICE BENITA [facility] [id number] Univers 10:00:00 11:36:32 ity [facility] 2020-12-22 2020-12-22 Outpatient R LATRICE BENITA [facility] [id number] Univers 10:00:00 11:36:32 ity [facility] 2020-12-22 2020-12-22 Outpatient R BENITA POLLARD [facility] [id number] Univers 10:00:00 11:36:32 ity of [facility] 2020-12-22 2020-12-22 Initial Benita Pollard [facility] 1.2.183.336 [id number] Univers 09:47:43 11:36:32 Paresh [place] 350.1.13.10 ity of [place] [id number] [address] 2020-12-22 2020-12-22 Telephone Benita Pollard [facility] 1.2.840.114 [id number] Univers 00:00:00 00:00:00 Cam Clint 350.1.13.10 i ty of [place] [id number] [address] 2020-12-22 2020-12-22 Orders Doctor ANNETTE 1.2.840.114 [id number] Univers 00:00:00 00:00:00 Only Unassigned, RAMYA 350.1.13.10 ity of [place] [facility] 4.2.7.2.686 Alli as [id number] [address] 2020-12-01 2020-12-01 Outpatient R POLLARD BENITA [facility] [id number] Univers 14:00:00 14:00:00 ity of [facility] 2020-11-28 2020-11-28 Telephone Benita Pollard [facility] 1.2.840.114 [id number] Univers 00:00:00 00:00:00 Paresh [place] 350.1.13.10 i ty [place] [id number] La dic[address] 2020-11-25 2020-11-25 Tele[facility] 1.2.840.114 [id number] Univers 00:00:00 00:00:00 Cam Clint 350.1.13.10 i ty [place] [phone] [address] 2018-11-13 2018-11-13 Orders Doctor ANNETTE 1.2.840.114 [id number] Univers 00:00:00 00:00:00 Only Unassigned, RAMYA 350.1.13.10 ity of [place] [facility] 4.2.7.2.686 Alli as [id number] [address] 2018-10-05 2018-10-05 Routine [facility] 1.2.840.114 [id number] [facility] 10:58:33 12:10:47 Ruth Clint 350.1.13.10 ity of [place] [id number] [address] 2018-10-05 2018-10-05 Orders Doctor ANNETTE 1.2.840.114 [id number] Univers 00:00:00 00:00:00 Only Unassigned, RAMYA 350.1.13.10 ity of [place] [facility] 4.2.7.2.686 Alli as [phone] [address] 2018-09-21 2018-09-21 Initial [facility] 1.2.840.114 [id number] [facility] 09:04:41 10:13:17 Ruth [place] 350.1.13.10 ity of [place] [phone] [address] Results Test Description Test Time Test Comments Results Result Comments Source CBC with Differential 2021-07-18 09:52:25 Test Item Value Reference Range Interpretation Comme nts WBC (test code = 6690-2) See_Comment H [A utomated message] The system which ge nerated this result transmit mary reference range: 4.30 - 1 1.10 10*3/?L. The reference r abhijeet was not used to interpr et this result as normal/abnor mal. RBC (test code = 789-8) See_Comment L [Au tomated message] The system which ge nerated this result transmit mary reference range: 3.93 - 5 .25 10*6/?L. The reference r abhijeet was not used to interpr et this result as normal/abnor mal. HGB (test code = 718-7) 10.2 g/dL 11.6-15.0 L HCT (test code = 4544-3) 32.3 % 35.7-45.2 L MCV (test code = 787-2) 83.0 fL 80.6-95.5 MCH (test code = 785-6) 26.2 pg 25.9-32.8 MCHC (test code = 786-4) 31.6 g/dL 31.6-35.1 RDW-SD (test code = 27805-1) 40.7 fL 39.0-49.9 RDW-CV (test code = 788-0) 13.8 % 12.0-15.5 PLT (test code = 777-3) See_Comment [Au tomated message] The system which ge nerated this result transmit mary reference range: 166 - 35 8 10*3/?L. The reference range was not used to interpret th is result as normal/abnormal . MPV (test code = 27208-0) 11.0 fL 9.5-12.9 NRBC/100 WBC (test code = See_Comment [ Automated message] The [id number]) system which ge nerated this result transmit mary reference range: 0.0 - 10 .0 /100 WBCs. The reference r abhijeet was not used to interpr et this result as normal/abnor mal. NRBC x10^3 (test code = <0.01 See_Comment [Au tomated message] The [id number]) system which ge nerated this result transmit mary reference range: 10*3/?L. The reference range was not u sed to interpret this result as normal/abnormal . GRAN MAT (NEUT) % (test code 76.2 % = 770-8) IMM GRAN % (test code = 1.10 % [id number]) LYMPH % (test code = 736-9) 16.0 % MONO % (test code = 5905-5) 6.3 % EOS % (test code = 713-8) 0.1 % BASO % (test code = 706-2) 0.3 % GRAN MAT x10^3(ANC) (test 11.74 10*3/uL 1.88-7.09 H code = [id number]) IMM GRAN x10^3 (test code = 0.17 10*3/uL 0.00-0.06 H [id number]) LYMPH x10^3 (test code = 2.47 10*3/uL 1.32-3.29 731-0) MONO x10^3 (test code = 0.97 10*3/uL 0.33-0.92 H 742-7) EOS x10^3 (test code = <0.03 0.03-0.39 L 711-2) BASO x10^3 (test code = 0.04 10*3/uL 0.01-0.07 704-7) Lab Interpretation (test Abnormal code = 30256-3) [id number] 08:54:37 Test Item Value Reference Range Interpretation Comments RPR (Qualitative) (test code = Nonreactive Nonreactive 19525-2) Lab Interpretation (test code = Normal 97451-3) [facility] IMMUNE [id number] 23:43:51 Test Item Value Reference Range Interpretation Comments RHIG CANDIDATE? No- see comment Patient i s not a (test code = candidate for R [facility]- 5055) Patient is Rh Positive.Perfor med at [facility] Laboratory Services - [facility] [address] [place], [place] [phone] Free: [phone] A No. [id number] [facility] HospitalHepatitis B Surface [id number] 15:23:11 Test Item Value Reference Range Interpretation Comments HBsAg Semi-Quantitative (test code = Negative Negative 5195-3) [facility] HospitalHIV 1/2 AG-AB WITH [id number] 13:00:00 Test Item Value Reference Range Interpretation Comments HIV Negative Negative Semi-quantitative (test code = 00137-4) BUZZ (test code = Non-reactive for HIV-1 BUZZ) antigen and HIV-1/HIV-2 antibodies. ?No laboratory evidence of HIV infection. ?Repeat in 2-4 weeks if acute HIV infection is suspected. [facility] HospitalType and Screen - ONCE [id number] 12:01:34 Test Item Value Reference Range Interpretation Comments ABO & RH (test code A Positive Performe d at [facility] = 20) Laboratory Serv ices - [facility] Blood [address] [place] [id number] Free: [phone] A No. [id number] IAT (test code = Negative Performed a t [facility] 1185) Laboratory Serv ice - [facility] Blood [address] [place] [phone] Free: [phone] A No. [id number] [facility] HospitalCBC with [id number] 11:26:31 Test Item Value Reference Range Interpretation Comments WBC (test code = See_Comment [Automated 4090-2) message] The sy stem which generated this result transmitted reference range : 4.30 - 11.10 10*3/?L. The reference range was not used to interpret this result as normal/abnormal . RBC (test code = See_Comment [Automated 789-8) message] The sy stem which generated this result transmitted reference range : 3.93 - 5.25 10*6/?L. The reference range was not used to interpret this result as normal/abnormal . HGB (test code = 10.3 g/dL 11.6-15.0 L 718-7) HCT (test code = 31.7 % 35.7-45.2 L 4544-3) MCV (test code = 80.1 fL 80.6-95.5 L 787-2) MCH (test code = 26.0 pg 25.9-32.8 785-6) MCHC (test code = 32.5 g/dL 31.6-35.1 786-4) RDW-SD (test code = 38.4 fL 39.0-49.9 L 59309-9) RDW-CV (test code = 13.2 % 12.0-15.5 788-0) PLT (test code = See_Comment [Automated 777-3) message] The sy stem which generated this result transmitted reference range : 166 - 358 10*3/ ?L. The reference r abhijeet was not used to interpret this result as normal/abnormal . MPV (test code = 11.0 fL 9.5-12.9 37162-0) NRBC/100 WBC (test See_Comment [Automat ed code = 4296255389) message] The system which generated this result transmitted reference range : 0.0 - 10.0 /100 WBCs. The refer ence range was not u sed to interpret th is result as normal/abnormal . NRBC x10^3 (test code <0.01 See_Comment [Auto mated = 4335703033) message] The s ystem which generated this result transmitted reference range : 10*3/?L. The reference range was not used to interpret this result as normal/abnormal . GRAN MAT (NEUT) % 68.4 % (test code = 770-8) IMM GRAN % (test code 1.30 % = 5891127115) LYMPH % (test code = 21.1 % 736-9) MONO % (test code = 8.5 % 5905-5) EOS % (test code = 0.4 % 713-8) BASO % (test code = 0.3 % 706-2) GRAN MAT x10^3(ANC) 6.85 10*3/uL 1.88-7.09 (test code = 5109407440) IMM GRAN x10^3 (test 0.13 10*3/uL 0.00-0.06 H code = 6208353404) LYMPH x10^3 (test code 2.11 10*3/uL 1.32-3.29 = 731-0) MONO x10^3 (test code 0.85 10*3/uL 0.33-0.92 = 742-7) EOS x10^3 (test code = 0.04 10*3/uL 0.03-0.39 711-2) BASO x10^3 (test code 0.03 10*3/uL 0.01-0.07 = 704-7) Lab Interpretation Abnormal (test code = 29489-9) [facility] HospitalPOND URINALYSIS W/O SPECIFIC [id number] 15:23:00 Test Item Value Reference Range Interpretation Comments POCT PH U (test code = 3254) 6 mg/dl 5-8 POCT U LEUK EST (test code = Negative Negative - Negative 3263) POCT U NIT (test code = 3262) Negative Negative - Negative POCT U PROT (test code = 3259) Negative Negative - Negative POCT U GLU (test code = 3256) Normal Negative - Negative POCT U KETONE (test code = 3258) ++ mod Negative - Negative POCT U BLD (test code = 3257) Trace Negative - Negative [facility]IN[facility] W/O SPECIFIC [id number] 18:16:00 Test Item Value Reference Range Interpretation Comments POCT PH U (test code = 3254) n/a 5-8 POCT U LEUK EST (test code = n/a Negative - Negative 3263) POCT U NIT (test code = 3262) n/a Negative - Negative POCT U PROT (test code = 3259) negative Negative - Negative POCT U GLU (test code = 3256) negative Negative - Negative POCT U KETONE (test code = 3258) n/a Negative - Negative POCT U BLD (test code = 3257) n/a Negative - Negative [facility] [id number] 14:40:00 Test Item Value Reference Range Interpretation Comments POCT PH U (test code = 3254) n/a 5-8 POCT U LEUK EST (test code = n/a Negative - Negative 3263) POCT U NIT (test code = 3262) n/a Negative - Negative POCT U PROT (test code = 3259) Negative Negative - Negative POCT U GLU (test code = 3256) normal Negative - Negative POCT U KETONE (test code = 3258) n/a Negative - Negative POCT U BLD (test code = 3257) n/a Negative - Negative [facility] WITH [id number] 13:31:36 Test Item Value Reference Range Interpretation Comments WBC (test code = See_Comment [Automated 2108-2) message] The sy stem which generated this result transmitted reference range : 4.30 - 11.10 10*3/?L. The reference range was not used to interpret this result as normal/abnormal . RBC (test code = See_Comment [Automated 082-8) message] The sy stem which generated this result transmitted reference range : 3.93 - 5.25 10*6/?L. The reference range was not used to interpret this result as normal/abnormal . HGB (test code = 10.9 g/dL 11.6-15.0 L 718-7) HCT (test code = 33.7 % 35.7-45.2 L 4544-3) MCV (test code = 82.6 fL 80.6-95.5 787-2) MCH (test code = 26.7 pg 25.9-32.8 785-6) MCHC (test code = 32.3 g/dL 31.6-35.1 786-4) RDW-SD (test code = 38.5 fL 39.0-49.9 L 60873-5) RDW-CV (test code = 12.8 % 12.0-15.5 788-0) PLT (test code = See_Comment [Automated 777-3) message] The sy stem which generated this result transmitted reference range : 166 - 358 10*3/ ?L. The reference r abhijeet was not used to interpret this result as normal/abnormal . MPV (test code = 10.1 fL 9.5-12.9 61507-3) NRBC/100 WBC (test See_Comment [Automat ed code = 6613373849) message] The system which generated this result transmitted reference range : 0.0 - 10.0 /100 WBCs. The refer ence range was not u sed to interpret th is result as normal/abnormal . NRBC x10^3 (test code <0.01 See_Comment [Auto mated = 9421141950) message] The s ystem which generated this result transmitted reference range : 10*3/?L. The reference range was not used to interpret this result as normal/abnormal . GRAN MAT (NEUT) % 83.5 % (test code = 770-8) IMM GRAN % (test code 0.80 % = 6454324196) LYMPH % (test code = 10.9 % 736-9) MONO % (test code = 4.5 % 5905-5) EOS % (test code = 0.1 % 713-8) BASO % (test code = 0.2 % 706-2) GRAN MAT x10^3(ANC) 9.11 10*3/uL 1.88-7.09 H (test code = 6804574551) IMM GRAN x10^3 (test 0.09 10*3/uL 0.00-0.06 H code = 0025727663) LYMPH x10^3 (test code 1.19 10*3/uL 1.32-3.29 L = 731-0) MONO x10^3 (test code 0.49 10*3/uL 0.33-0.92 = 742-7) EOS x10^3 (test code = <0.03 0.03-0.39 L 711-2) BASO x10^3 (test code <0.03 0.01-0.07 = 704-7) Lab Interpretation Abnormal (test code = 27359-2) [facility] WITH [id number] 01:34:29 Test Item Value Reference Range Interpretation Comments WBC (test code = See_Comment H [Automated 6690-2) message] The system which generated this result transmit mary reference range : 4.30 - 11.10 10*3/?L. The reference range was not used to interpret this result as normal/abnormal . RBC (test code = See_Comment [Automated 789-8) message] The system which generated this result transmit mary reference range : 3.93 - 5.25 10*6/?L. The reference range was not used to interpret this result as normal/abnormal . HGB (test code = 12.7 g/dL 11.6-15.0 718-7) HCT (test code = 38.3 % 35.7-45.2 4544-3) MCV (test code = 80.8 fL 80.6-95.5 787-2) MCH (test code = 26.8 pg 25.9-32.8 785-6) MCHC (test code = 33.2 g/dL 31.6-35.1 786-4) RDW-SD (test code = 37.0 fL 39.0-49.9 L 24956-6) RDW-CV (test code = 12.6 % 12.0-15.5 788-0) PLT (test code = See_Comment [Automated 777-3) message] The system which generated this result transmit mary reference range : 166 - 358 10*3/ ?L. The reference range was not u sed to interpret th is result as normal/abnormal . MPV (test code = 10.5 fL 9.5-12.9 09445-0) NRBC/100 WBC (test See_Comment [Automat ed code = 4265362568) message] The system which generated this result transmit mary reference range : 0.0 - 10.0 /100 WBCs. The reference range was not used to interpret this result as normal/abnormal . NRBC x10^3 (test code <0.01 See_Comment [Auto mated = 6127159027) message] The system which generated this result transmit mary reference range : 10*3/?L. The reference range was not used to interpret this result as normal/abnormal . GRAN MAT (NEUT) % 88.6 % (test code = 770-8) IMM GRAN % (test code 1.10 % = 0312912850) LYMPH % (test code = 5.9 % 736-9) MONO % (test code = 4.1 % 5905-5) EOS % (test code = 0.1 % 713-8) BASO % (test code = 0.2 % 706-2) GRAN MAT x10^3(ANC) 15.84 10*3/uL 1.88-7.09 H (test code = 5378002472) IMM GRAN x10^3 (test 0.20 10*3/uL 0.00-0.06 H code = 3261090935) LYMPH x10^3 (test code 1.06 10*3/uL 1.32-3.29 L = 731-0) MONO x10^3 (test code 0.73 10*3/uL 0.33-0.92 = 742-7) EOS x10^3 (test code = <0.03 0.03-0.39 L 711-2) BASO x10^3 (test code 0.04 10*3/uL 0.01-0.07 = 704-7) Lab Interpretation Abnormal (test code = 55246-3) [facility] HospitalCOMP. METABOLIC PANEL (50400)2021-06-24 01:27:51 Test Item Value Reference Range Interpretation Comments NA (test code = 135 mmol/L 135-145 9836675953) K (test code = 4.1 mmol/L 3.5-5.0 6386420646) CL (test code = 107 mmol/L 98-108 7613563346) CO2 TOTAL (test code = 17 mmol/L 23-31 L 2733095025) AGAP (test code = 2-16 3455336939) BUN (test code = 9 mg/dL 7-23 4185021214) GLUCOSE (test code = 93 mg/dL 70-110 8880411245) CREATININE (test code = 0.54 mg/dL 0.50-1.04 6612738324) TOTAL BILI (test code = 0.6 mg/dL 0.1-1.2 2272845915) CALCIUM (test code = 8.8 mg/dL 8.6-10.6 3068313398) T PROTEIN (test code = 7.0 g/dL 6.3-8.2 0511695672) ALBUMIN (test code = 3.9 g/dL 3.5-5.0 6362964625) ALK PHOS (test code = 121 U/L 34-122 5692363648) ALTv (test code = 12 U/L 5-35 1742-6) AST(SGOT) (test code = 21 U/L 13-40 8689522898) eGFR (test code = mL/min/1.73m2 4336189541) BUZZ (test code = BUZZ) Association of Glomerular Filtration Rate (GFR) and Staging of Kidney Disease* + --+ --+ ------+| GFR (mL/min/1.73 m2) ?| With Kidney Damage ?| ?Without Kidney Damage+ --------+ --------+ +| ?>90 ?| ?Stage one ?| ? Normal ?+ ---+ ---+ -------+| ?60-89 ?| ?Stage two ?| ? Decreased GFR ? + --+ --+ ------+| ?30-59 ?| ?Stage three ?| ? Stage three ? + --+ --+ ------+| ?15-29 ?| ?Stage four ? | ? Stage four ?+ ---+ ---+ -------+| ?<15 (or dialysis) ? ?| ?Stage five ? | ? Stage five ?+ ---+ ---+ -------+ *Each stage assumes the associated GFR level has been in effect for at least three months. ?Stages 1 to 5, with or without kidney disease, indicate chronic kidney disease. Notes: Determination of stages one and two (with eGFR >59mL/min/1.73 m2) requires estimation of kidney damage for at least three months as defined by structural or functional abnormalities of the kidney, manifested by either:Pathological abnormalities or Markers of kidney damage (including abnormalities in the composition of the blood or urine or abnormalities in imaging tests). Lab Interpretation Abnormal (test code = 90592-0) [facility] HospitalLIPASE2022-04-[facility] 01:27:31 Test Item Value Reference Range Interpretation Comments LIPASE (test code = 5661604539) 61 U/L 0-220 Lab Interpretation (test code = Normal 49586-8) [facility] HospitalAMYLASE2022-04-27 01:26:51 Test Item Value Reference Range Interpretation Comments MARQUITA (test code = 2372633427) 55 U/L 35-110 Lab Interpretation (test code = Normal 26016-9) [facility]PO[facility] UR[facility]AL[facility] W/O SPECIFIC [id number] 15:10:00 Test Item Value Reference Range Interpretation Comments POCT PH U (test code = 3254) N/A 5-8 POCT U LEUK EST (test code = N/A Negative - Negative 3263) POCT U NIT (test code = 3262) N/A Negative - Negative POCT U PROT (test code = 3259) Trace Negative - Negative POCT U GLU (test code = 3256) Negative Negative - Negative POCT U KETONE (test code = 3258) N/A Negative - Negative POCT U BLD (test code = 3257) N/A Negative - Negative [facility]POND [facility] W/O SPECIFIC [id number] 14:48:00 Test Item Value Reference Range Interpretation Comments POCT PH U (test code = 3254) n.a 5-8 POCT U LEUK EST (test code = 3263) n.a Negative - Negative POCT U NIT (test code = 3262) n.a Negative - Negative POCT U PROT (test code = 3259) trace Negative - Negative POCT U GLU (test code = 3256) neg Negative - Negative POCT U KETONE (test code = 3258) n.a Negative - Negative POCT U BLD (test code = 3257) n.a Negative - Negative [facility]"
--- NOTE | 2023-01-24 13:17 | RAD REPORT ---
EXAM DESCRIPTION: US - Transvaginal OB - 01/24/2023 12:48 pm CLINICAL HISTORY: VAGINAL BLEEDING COMPARISON: Transvaginal OB dated 12/02/2020 TECHNIQUE: Sonographic grayscale and color flow images of the pelvis, performed through transabdomin al a transvaginal approaches. FINDINGS: No intrauterine is identified. Uterus measures 8.7 cm in length. No myometrial abnormality. Mildly prominent venous plexus along the returned posterior wall and in the adnexal regions. Mildly thickened and heterogeneous endometrium, with tiny cystic components. No pole or pulsations identified. Few nabothian cysts. Maternal ovaries are unremarkable apart from small physiologic appearing cysts or dominant follicles largest measuring 1.5 cm on the right. No free fluid. IMPRESSION: 1. No intrauterine is identified. 2. Mildly prominent and heterogeneous endometrium, with tiny cystic spaces, however no focal vascular ized lesions or other findings to suggest retained products of conception. 3. No suspicious adnexal lesions.
[2023-01-24 13:29] LABS: Absolute Lymphocytes (CBC) 2.2 K/uL (0.7-4.9); Hematocrit 39.8 % (36.0-45.0); Lymphocytes % 23.9 % (15.3-44.8); MCV 86.5 fL (80-100); MPV 8.1 fL (7.6-11.3); Platelets 318 thou/uL (152-406); RBC Red Blood Cell Count 4.61 M/uL (3.86-4.86)
[2023-01-24 13:52] LABS: Potassium 3.8 mEq/L (3.5-5.1)
--- NOTE | 2023-01-24 14:44 | EDPHYS ---
Physician Documentation [facility] Name: Bubba Marcelino Age: 27 yrs Sex: Female : 1995 Arrival Date: 01/24/2023 Time: 11:52 Bed 6 Private MD: ED Physician Ruben Bailey HPI: 01/24 12:10 This 27 yrs old Female presents to ER via Ambulatory with complaints of Vaginal al3 Bleeding, + Preg <12wks. 12:10 27-year-old female with past medical history of celiac disease, GERD [place] [facility] [place] for vaginal bleeding for 3 to 4 weeks. Patient states her last menstrual period was November 18, 2022. Patient is a -0-0-2. Patient states she was seen at the [facility] and they were trending her hCGs which were trending in the correct direction. Patient noted she had a cramping 5 to 6 days ago and has had cramping intermittently. Patient states today the cramping began again. Patient denies any alleviating or inciting factors.. Historical: - Allergies: 12:05 Iodine; mb9 - Home Meds: 12:05 None [Active]; mb9 - PMHx: 12:05 Celiac Disease; GERD; mb9 - PSHx: 12:05 Appendectomy; Cholecystectomy; mb9 - Immunization history:: Adult Immunizations up to date. - Social history:: Smoking status: Patient denies any tobacco usage or history of. ROS: 12:10 Constitutional: Negative for fever, and chills. Neck: Negative for injury, pain, and ms3 swelling, Cardiovascular: Negative for chest pain, and palpitations. Respiratory: Negative for shortness of breath, cough, wheezing, and pleuritic chest pain, 12:10 MS/Extremity: Negative for injury and deformity, Skin: Negative for injury, rash, and discoloration, 12:10 Abdomen/GI: Positive for abdominal cramps, 12:10 : Positive for vaginal bleeding, 12:10 All other systems are negative, Exam: 12:10 Constitutional: This is a well developed, well nourished patient who is awake, alert, ms3 and in no acute distress. Head/Face: Normocephalic, atraumatic. Neck: Trachea midline, no cervical lymphadenopathy. Supple, full range of motion without nuchal rigidity, or vertebral point tenderness. No Meningismus. Chest/axilla: Normal chest wall appearance and motion. Nontender with no deformity. Cardiovascular: Regular rate and rhythm with a normal S1 and S2. No gallops, murmurs, or rubs. Normal PMI, no JVD. No pulse deficits. Respiratory: Lungs have equal breath sounds bilaterally, clear to auscultation and percussion. No rales, rhonchi or wheezes noted. No increased work of breathing, no retractions or nasal flaring. Abdomen/GI: Soft, non-tender, with normal bowel sounds. No distension or tympany. No guarding or rebound. No evidence of tenderness throughout. Skin: Warm, dry with normal turgor. Normal color with no rashes, no lesions, and no evidence of cellulitis. MS/ Extremity: Pulses equal, no cyanosis. Neurovascular intact. Full, normal range of motion. 12:10 : Patient defers at this time, Vital Signs: 12:01 BP 122 / 79; Pulse 113; Resp 16; Temp 98; Pulse Ox 99% on R/A; Weight 61.23 kg; Height mb9 5 ft. 4 in. ; 14:58 BP 124 / 87; Pulse 91; Resp 16; Pulse Ox 98% on R/A; iw 12:01 Body Mass Index 23.17 (61.23 kg, 162.56 cm) mb9 MDM: 12:07 Patient medically screened. ms3 12:11 Differential diagnosis: threatened Ab, inevitable Ab, complete Ab, retained Ab, missed ms3 Ab, ectopic . 14:44 Data reviewed: vital signs, nurses notes, lab test result(s), radiologic studies, and ms3 as a result, I will discharge patient. Counseling: I had a detailed discussion with the patient and/or guardian regarding the historical points, exam findings, and any diagnostic results supporting the discharge/admit diagnosis, lab results, radiology results, the need for outpatient follow up, to return to the emergency department if symptoms worsen or persist or if there are any questions or concerns that arise at home. Special discussion: I discussed with the patient/guardian in detail that at this point there is no indication for admission to the hospital. It is understood, however, that if the symptoms persist or worsen the patient needs to return immediately for re-evaluation. ED course: Patient states her blood type is a positive. Patient to follow-up with her regulatory affairs analyst in 2 to 3 days. Patient understands and agrees with plan. All questions were answered. Return precautions discussed include worsening symptoms, fevers, chills, abdominal pain, or any other concerns. On reevaluation patient is alert and orient x 4, in no apparent distress, nontoxic-appearing, ambulatory in emergency room, speaking full sentences. 01/24 12:08 Order name: Basic Metabolic Panel; Complete Time: 14:38 ms3 01/24 12:08 Order name: CBC with Diff; Complete Time: 13:39 ms3 01/24 12:08 Order name: Quantitative Hcg; Complete Time: 14:38 ms3 01/24 12:08 Order name: Urinalysis w/ reflexes ms3 01/24 12:08 Order name: US Transvaginal Ob; Complete Time: 13:39 ms3 01/24 12:08 Order name: IV Saline Lock; Complete Time: 13:20 ms3 01/24 12:08 Order name: Labs collected and sent; Complete Time: 13:20 ms3 01/24 12:08 Order name: NPO; Complete Time: 14:17 ms3 Administered Medications: No medications were administered Disposition Summary: 01/24/23 14:44 Discharge Ordered Notes: Location: Home ms3 Condition: Stable ms3 Diagnosis - Complete or unspecified spontaneous without complication ms3 Followup: ms3 - With: Private Physician - When: 2 - 3 days - Reason: Recheck today's complaints Discharge Instructions: - Discharge Summary Sheet ms3 - Miscarriage ms3 Forms: - Medication Reconciliation Form ms3 - Thank You Letter ms3 - Antibiotic Education ms3 - Prescription Opioid Use ms3 - Patient Portal Instructions ms3 - Leadership Thank You Letter ms3 Signatures: Dispatcher [employer] EDRuben Zuluaga DO DO ms3 Naomy Gifford, RN RN mb9
--- NOTE | 2023-01-24 14:44 | ER ---
Nurse's Notes [facility] Name: Bubba Marcelino Age: 27 yrs Sex: Female : 1995 Arrival Date: 01/24/2023 Time: 11:52 Bed 6 Private MD: Diagnosis: Complete or unspecified spontaneous without complication Presentation: 01/24 12:01 Chief complaint: Patient states: "I'm 9 weeks and I've been having vaginal mb9 bleeding for the past 3 weeks. A couple days ago, I started having cramping and a clot pass.". Coronavirus screen: At this time, the client does not indicate any symptoms associated with coronavirus-19. Ebola Screen: No symptoms or risks identified at this time. Initial Sepsis Screen: Does the patient meet any 2 criteria? No. Patient's initial sepsis screen is negative. Does the patient have a suspected source of infection? No. Patient's initial sepsis screen is negative. Risk Assessment: Do you want to hurt yourself or someone else? Patient reports no desire to harm self or others. Onset of symptoms was January 24, 2023. 12:01 Method Of Arrival: Ambulatory mb9 12:01 Acuity: AMI 3 mb9 Triage Assessment: 12:05 General: Appears in no apparent distress. Behavior is calm, cooperative. Pain: Denies mb9 pain. EENT: No signs and/or symptoms were reported regarding the EENT system. Neuro: Montano Agitation-Sedation Scale (RASS): 0 - Alert and Calm Level of Consciousness is awake, alert, obeys commands, Oriented to person, place, time, situation, Appropriate for age. Cardiovascular: Patient's skin is warm and dry. Respiratory: Airway is patent Respiratory effort is even, unlabored, Respiratory pattern is regular, symmetrical. GI: Reports cramping. : Reports vaginal bleeding that is bright red, with clots. Derm: Skin is pink, warm \\T\\ dry. Musculoskeletal: Range of motion: intact in all extremities. Historical: - Allergies: 12:05 Iodine; mb9 - Home Meds: 12:05 None [Active]; mb9 - PMHx: 12:05 Celiac Disease; GERD; mb9 - PSHx: 12:05 Appendectomy; Cholecystectomy; mb9 - Immunization history:: Adult Immunizations up to date. - Social history:: Smoking status: Patient denies any tobacco usage or history of. Screenin:37 [facility] ED Fall Risk Assessment (Adult) Score/Fall Risk Level 0 - 2 = Low Risk. Abuse iw screen: Denies threats or abuse. Denies injuries from another. Nutritional screening: No deficits noted. Tuberculosis screening: No symptoms or risk factors identified. Assessment: 14:36 General: Appears in no apparent distress. Behavior is calm, cooperative. Pain: Denies iw pain. 14:37 Neuro: Level of Consciousness is awake, alert, obeys commands, Oriented to person, iw place, time, situation, Moves all extremities. Full function. Cardiovascular: Patient's skin is warm and dry. Respiratory: Respiratory effort is even, unlabored. Vital Signs: 12:01 BP 122 / 79; Pulse 113; Resp 16; Temp 98; Pulse Ox 99% on R/A; Weight 61.23 kg; Height mb9 5 ft. 4 in. ; 14:58 BP 124 / 87; Pulse 91; Resp 16; Pulse Ox 98% on R/A; iw 12:01 Body Mass Index 23.17 (61.23 kg, 162.56 cm) mb9 ED Course: 11:56 Patient arrived in ED. mr 12:01 Ruben Bailey DO is Attending Physician. ms3 12:01 Arm band placed on. mb9 12:05 Triage completed. mb9 12:50 Transvaginal Ob In Process Unspecified. EDMS 13:08 Destiney Keyes, RN is Primary Nurse. iw 13:20 Inserted saline lock: 22 gauge in right antecubital area, using aseptic technique. ds4 Blood collected. 13:49 Basic Metabolic Panel Sent. ds4 13:49 Quantitative Hcg Sent. ds4 14:59 Patient has correct armband on for positive identification. Provided Education on: . iw 14:59 No provider procedures requiring assistance completed. IV discontinued, intact, iw bleeding controlled, No redness/swelling at site. Pressure dressing applied. Administered Medications: No medications were administered Medication: 14:37 VIS not applicable for this client. iw Outcome: 14:44 Discharge ordered by . ms3 14:59 Discharged to home ambulatory, iw 14:59 Condition: good 14:59 Discharge instructions given to patient, Instructed on discharge instructions, follow up and referral plans. Demonstrated understanding of instructions, follow-up care, 15:00 Patient left the ED. iw Signatures: Dispatcher [employer] EDMS Naomy Kaplan, Reg Reg Destiney Meeks, RN RN Adrian Kenny ds4 Ruben Bailey DO DO ms3 Naomy Gifford RN RN mb9
[2023-01-24 15:07] VITALS: TEMP 98
[2023-01-24 15:09] VITALS: BP 124/87; O2SAT 98
[2023-01-24 15:14] LABS: Urine Color Yellow (Yellow)
[2023-01-24 15:15] LABS: Specific Gravity 1.025 (1.005-1.030); Urine Bilirubin Negative (Negative); Urine Blood Negative (Negative); Urine Clarity Clear (Clear); Urine Glucose Negative (Negative); Urine Protein Trace (Negative); Urine pH 6.5 (5.0-7.0)
== END 2023-01-24 15:00 | disposition home or self-care (01) ==
LOC: ER 11:52
DX: O03.9 Complete or unspecified spontaneous abortion without complication (principal); K90.0 Celiac disease; K21.9 Gastro-esophageal reflux disease without esophagitis
CPT/HCPCS: 36415; 76817; 80048; 81003; 84702; 85025; 99283